=== PATIENT | female | born 1960 | race Caucasian/White ===

== ENCOUNTER 2023-03-19 12:53 | Emergency (ER) | payer OTHER, SELFPAY ==
[2023-03-19] VITALS (13 sets, daily range): BP systolic 169–191; BP diastolic 59–128; PULSE 62–77; RESP 12–23; O2SAT 93–98; BMI 32.2
--- NOTE | 2023-03-19 13:02 | ECG_ITS ---
The [facility] Test Date: 2023-03-19 Pat Name: ZACKERY ZELAYA Department: Room: - Gender: Female [employer] Executive Director: : 1960 Requested By: [id number] Order Number: [id number] Reading MD: MIQUEL RANGEL Measurements Intervals [place] Rate: 63 P: 56 CT: 134 QRS: 54 QRSD: 84 T: 52 QT: 430 QTc: 436 Interpretive Statements 1100 Sinus rhythm 4068 Nonspecific Twave abnormality 9130 borderline ECG No previous ECG available for comparison Electronically Signed On 03-20-2023 7:05:41 EDT by MIQUEL RANGEL
[2023-03-19] MEDS: ACETAMINOPHEN 500 MG TABLET 1000 MG PO (14:06)
[2023-03-19] MEDS: CLONIDINE HCL 0.1 MG TABLET PO (14:06)
--- NOTE | 2023-03-19 14:59 | ED_ITS ---
HPI - General Adult General Chief complaint: Headache Stated complaint: HYPERTENSION Time Seen by Provider: 03/19/23 13:14 Source: patient Mode of arrival: walk-in Limitations: no limitations History of Present Illness HPI narrative: Patient is a 62-year-old female who is presenting to the Emergency Room with chief complaint of headache and high blood pressure. Patient has no strokelike signs or symptoms today. Patient's been having headache daily for the past 2 or 3 weeks. Patient also been having high blood pressure, patient takes verapamil 240 mg a day. Patient went to [facility] Emergency Room 10 days ago because she is having headache, high blood pressure, numbness to her forehead and in the left side of her face. Patient had a CT of the brain, CTA of the head and neck, and a stroke workup. All testing was negative. Patient does not have an appointment with her PCP until next week. Patient is very frustrated because she continues to have high blood pressure and headache daily. Patient didn't have insurance initially and was having a hard time getting into her family doctor. Now patient has medical mutual through her work. Patient denies any type of headache. She has no strokelike signs or symptoms today. Her chest pain or shortness of breath. No other acute complaints. Patient has no bowel pain, nausea or vomiting. No bowel or bladder changes. Patient is very tearful. Patient's taking Tylenol and Naprosyn with little relief. Patient's headache is been the same for the past 2 or 3 weeks, not new today. Patient's headache was not the worse headache of her life, not sudden onset, not thunderclap in nature. Patient told nursing staff Cathy OLMOS that she did not want IV, lab testing, or radiographic testing because she just had a thorough workup 10 days ago [facility]. . All systems are negative except as noted/marked. All systems reviewed and otherwise negative. . Nurses note and vital signs reviewed and patient is not hypoxic. General: The patient appears well and in no apparent distress. Patient is resting comfortably on cart. Patient is not toxic, lethargic, or listless Skin: Warm, dry, no pallor noted. There is no rash noted. No petechiae, purpura. Head: Normocephalic, atraumatic, no midline or paracervical tenderness to palpation. Full range of motion of cervical spinal no difficulty. No tenderness to palpation to bilateral frontomaxillary sinus. Eye: Normal conjunctiva, no drainage, EOMI. PERRL Ears, Nose, Mouth, and Throat: oral mucosa is moist. Nares patent. Mouth without vesicles. Cardiovascular: Regular Rate and Rhythm, no murmur, gallop, rub Respiratory: Patient is in no distress, no accessory muscle use, lungs are clear to auscultation, no wheezing, rales or rhonchi Back: non-tender, no CVA tenderness bilaterally to percussion. No CT LS midline pain GI: soft, no tenderness to palpation, no masses appreciated. No rebound, guarding, or rigidity noted. No flank pain bilateral, No distention Musculoskeletal: Patient has full range of motion of all of the extremities, no motor, sensory, or focal neurological deficits Neurological: A&O x3, normal speech, NIH 0 Psychiatric: Cooperative Related Data Previous Rx's Medication Instructions Recorded hydrochlorothiazide 25 mg tablet 25 mg PO DAILY #14 tabs 03/19/23 Allergies Allergy/AdvReac Type Severity Reaction Status Date / Time No Known Drug Allergies Allergy Verified 03/19/23 13:02 [facility] Social History Smoking status: Never smoker Exam Constitutional Vital Signs, click to edit/add: Last Vital Signs Pulse 68 03/19/23 14:01 Resp 17 03/19/23 14:01 BP 169/59 H 03/19/23 14:06 Pulse Ox 94 L 03/19/23 14:01 O2 Del Method Room Air 03/19/23 12:58 Course Vital Signs Vital signs: Vital Signs Pulse Rate 65 03/19/23 12:58 Respiratory Rate 18 03/19/23 12:58 Blood Pressure 183/128 H 03/19/23 12:58 Pulse Oximetry 98 03/19/23 12:58 Oxygen Delivery Method Room Air 03/19/23 12:58 Pulse Rate 68 03/19/23 14:01 Respiratory Rate 17 03/19/23 14:01 Blood Pressure 169/59 H 03/19/23 14:06 Pulse Oximetry 94 L 03/19/23 14:01 Oxygen Delivery Method Room Air 03/19/23 12:58 Medical Decision Making MDM Narrative Medical decision making narrative: patient did not want any testing in the Emergency Room, she does had thorough testing at [facility] 10 days ago. We called [facility] twice trying to get patient's paperwork from the Emergency Room, and they told us the patient at the call medical records to get a copy of her chart. This is not typically a normal process, but in the large picture patient's urine visit today, I did not call again for a 3rd time. However, I did speak to Dr. Daly. Patient will start taking Hydrocort Dyazide 25 mg a day as recommended by Dr. Daly. He'll see the patient next week. Patient will start creating a blood pressure log. patient understands this, patient was extremely happy my phone call in helping her today, actually tearful and thankfulness because she's been suffering daily and once the headache and blood pressure to be fixed. No questions at discharge ECG Data Attestation: I personally reviewed and interpreted this ECG as follows: Interpretation: EKG interpretation. Normal sinus rhythm at 63 beats a minute. Normal axis deviation. No acute ST elevation, no acute ectopy. QTC of 436. Discharge Plan Discharge Chief Complaint: Headache Clinical Impression: Headache, Hypertension Patient Disposition: Home, Self-Care Condition: Good Prescriptions / Home Meds: New hydrochlorothiazide 25 mg tablet 25 mg PO DAILY Qty: 14 0RF Instructions: Hypertension (ED), General Headache (ED) Additional Instructions: Continue taking verapamil daily. Start taking the new prescription HCTZ 25mg daily as well. Your is aware of your Emergency Room visit today, and he will see her next week. Take your blood pressure twice a day, start creating a blood pressure log and record the blood pressure and time and present that to next week to help with blood pressure control. Stand Alone Forms: Portal Instructions Referrals: Physician,Non-Staff, MD [Primary Care Provider] - 1 week Discharge Date/Time: 03/19/23 14:17
== END 2023-03-19 14:17 | disposition home or self-care (01) ==
PROVIDERS: Emergency Provider Emergency Medicine
DX: R51.9 Headache, unspecified (principal); I10 Essential (primary) hypertension
CPT/HCPCS: 93005; 99283

== ENCOUNTER 2023-10-25 08:35 | Emergency (ER) | payer BC, SELFPAY ==
[2023-10-25] VITALS (12 sets, daily range): BP systolic 142–144; BP diastolic 68–73; PULSE 70; RESP 16; TEMP 37; O2SAT 95–98
[2023-10-25 09:15] LABS: Basophils Percent Auto 0.5 % (0.2-2.0); Eosinophils Absolute Auto 0.2 10^3/uL (0.0-0.7); Eosinophils Percent Auto 3.5 % (0.9-7.0); Hematocrit 35.8 % (36.0-48.0); Hemoglobin 12.2 g/dL (12.0-16.0); Immature Granulocytes Abs Auto 0.01 10^3/uL (0.00-0.03); Immature Granulocytes Pct Auto 0.2 % (0.0-0.5); Lymphocytes Absolute Auto 1.3 10^3/uL (1.2-3.8); Lymphocytes Percent Auto 30.2 % (20.5-60.0); Mean Corpuscular HGB Conc 34.1 g/dL (29.9-35.2); Mean Corpuscular Hemoglobin 31.4 pg (26.7-34.0); Mean Corpuscular Volume 92.3 fL (81.0-99.0); Mean Platelet Volume 10.2 fL (9.5-13.5); Monocytes Absolute Auto 0.3 10^3/uL (0.3-0.8); Neutrophils Absolute Auto 2.5 10^3/uL (1.4-6.5); Neutrophils Percent Auto 58.6 % (43.0-75.0); Platelet Count 138 10^3/uL (150-450); Red Blood Count 3.88 10^6/uL (4.20-5.40); Red Cell Distribution Width 11.9 % (11.0-15.0); White Blood Count 4.3 10^3/uL (4.0-11.0)
[2023-10-25] MEDS: MORPHINE SULFATE 4 MG/ML VIAL IV (09:32)
[2023-10-25] MEDS: ONDANSETRON PF 4 MG/2 ML VIAL IV (09:32)
[2023-10-25] MEDS: 0.9 % SODIUM CHLORIDE 1,000 ML 1000 ML IV (09:33)
[2023-10-25 09:35] LABS: Lactate/Lactic Acid 1.2 mmol/L (0.4-2.0)
--- NOTE | 2023-10-25 09:42 | CT_ITS ---
The [address] [address] Patient Name: ZACKERY ZELAYA MRN: [id number] date: 1960 Sex: F Assigned Patient Location: ER Current Patient Location: Accession/Order Number: [id number] Exam Date: 10/25/2023 10:39 Report Date: 10/25/2023 11:08 At the request of: GABRIELA SAVAGE Procedure: CT abdomen pelvis w con EXAM: CT abdomen pelvis w con HISTORY: Left lower quadrant pain radiating into the lower back for several weeks or minimally. For the past week, pain has worsened and has been constant. COMPARISON: None. TECHNIQUE: IV contrast only was administered. Sagittal and coronal reformatted images were. Dose reduction techniques were achieved by using automated exposure control and/or adjustment of mA and/or kV according to patient size and/or use of iterative reconstruction technique. FINDINGS: The lung bases are grossly clear. Breathing motion artifact limits evaluation of lung bases. The visualized heart and great vessels are normal. The liver, spleen, adrenal glands, and pancreas are normal. Surgical changes of cholecystectomy. The kidneys enhance symmetrically and show no calcifications or hydronephrosis. No stones are seen in the ureters. The aorta has a normal course and caliber. There is scattered calcified plaque in the aorta and branch vessels. The large and small bowel are normal caliber. Stool is seen throughout the colon. A normal appendix is seen in the right lower quadrant. Pelvic organs are atrophied but are grossly normal. Urinary bladder is almost completely empty but is grossly normal. There is question of mild inflammatory stranding around the urinary bladder. There is no free air or free fluid. No suspicious or destructive bone lesions are seen. CT/CT abdomen pelvis w con IMPRESSION: At most, there is a possibility of inflammation around the urinary bladder suggesting a cystitis. There is otherwise no evidence of an acute infectious or inflammatory process to account for the symptoms. There is an element of constipation. Electronically authenticated by: COOPER MENG Date: 10/25/2023 11:08
--- NOTE | 2023-10-25 09:43 | ED.GENADUL1 ---
HPI - General Adult General Chief complaint: Abdominal Pain Stated complaint: ABDOMINAL PAIN Time Seen by Provider: 10/25/23 09:01 Source: patient Mode of arrival: walk-in History of Present Illness HPI narrative: Patient is a 63-year-old female who is presenting to the ER with chief complaint of left lower quadrant pain this been going on for the past week. Patient is also having urinary frequency and urgency, mild dysuria. No other vaginal bleeding or odors or discharge. Patient does have her ovaries, does not have a uterus. Patient has no history of kidney stone, no history of diverticulitis. No fever, chills. No chest pain or shortness of breath. No flank pain, no back pain, no other acute complaints. All systems are negative except as noted/marked. All systems reviewed and otherwise negative. Nurses note and vital signs reviewed and patient is not hypoxic. General: The patient appears well and in no apparent distress. Patient is resting comfortably on cart. Patient is not toxic, lethargic, or listless Skin: Warm, dry, no pallor noted. There is no rash noted. No petechiae, purpura. Head: Normocephalic, atraumatic Eye: Normal conjunctiva, no drainage, EOMI. PERRL Ears, Nose, Mouth, and Throat: oral mucosa is moist. Nares patent. Mouth without vesicles. Cardiovascular: Regular Rate and Rhythm, no murmur, gallop, rub Respiratory: Patient is in no distress, no accessory muscle use, lungs are clear to auscultation, no wheezing, rales or rhonchi Back: non-tender, no CVA tenderness bilaterally to percussion. No CT LS midline pain; patient has mild lower paralumbar tenderness to palpation, no rash, no flank pain bilateral. GI: Moderate left lower quadrant tenderness to palpation, no flank pain bilateral, mild left upper quadrant tenderness palpation ;no tenderness to palpation, no masses appreciated. No rebound, guarding, or rigidity noted. No distention. No peritoneal signs, no flank pain bilateral. Mild suprapubic tenderness to palpation. : Joyce OLMOS at bedside during the entire exam, patient has a very small pea-sized hemorrhoid to the 6 o'clock position. No perirectal or perianal abscess, no pilonidal cyst, no other signs of acute infection. Musculoskeletal: Patient has full range of motion of all of the extremities, no motor, sensory, or focal neurological deficits. Neurological: A&O x4, normal speech. Psychiatric: Cooperative Related Data Home Medications Medication Instructions Recorded Confirmed insulin NPH isoph U-100 human 100 20 unit subcut QAM 10/25/23 10/25/23 unit/mL (3 mL) subcutaneous pen (Novolin N FlexPen) rosuvastatin 20 mg tablet 20 mg PO DAILY 10/25/23 10/25/23 semaglutide 7 mg tablet (Rybelsus) 7 mg PO DAILY 10/25/23 10/25/23 verapamil 240 mg 24 hr 240 mg PO DAILY 10/25/23 10/25/23 capsule,extended release Previous Rx's Medication Instructions Recorded dicyclomine 20 mg tablet 20 mg PO TID PRN abdominal pain #7 10/25/23 tabs ondansetron 4 mg disintegrating 4 mg PO Q4H PRN nausea and 10/25/23 tablet vomiting 3 days #6 tabs Allergies Allergy/AdvReac Type Severity Reaction Status Date / Time No Known Drug Allergies Allergy Verified 03/19/23 13:02 [facility] Medical History (Updated 10/25/23 @ 12:13 by Tarun Baker MD) Endometriosis ?N80.9 - Endometriosis, unspecified (ICD-10) Endometrial adenocarcinoma ?C54.1 - Malignant neoplasm of endometrium (ICD-10) Surgical History (Updated 10/25/23 @ 09:05 by Cassandra Pearson RN) History of partial hysterectomy ?Z90.711 - Acquired absence of uterus with remaining cervical stump (ICD-10) Hx of cholecystectomy ?Z90.49 - Acquired absence of other specified parts of digestive tract (ICD-10) Social History Smoking status: Never smoker Exam Constitutional Vital Signs, click to edit/add: Last Vital Signs Temp 98.6 F 10/25/23 08:40 Pulse 70 10/25/23 08:40 Resp 16 10/25/23 08:40 BP 144/73 H 10/25/23 11:00 Pulse Ox 95 10/25/23 11:00 O2 Del Method Room Air 10/25/23 08:40 Course Vital Signs Vital signs: Vital Signs Temperature 98.6 F 10/25/23 08:40 Pulse Rate 70 10/25/23 08:40 Respiratory Rate 16 10/25/23 08:40 Blood Pressure 142/70 H 10/25/23 08:40 Pulse Oximetry 95 10/25/23 08:40 Oxygen Delivery Method Room Air 10/25/23 08:40 Temperature 98.6 F 10/25/23 08:40 Pulse Rate 70 10/25/23 08:40 Respiratory Rate 16 10/25/23 08:40 Blood Pressure 144/73 H 10/25/23 11:00 Pulse Oximetry 95 10/25/23 11:00 Oxygen Delivery Method Room Air 10/25/23 08:40 Medical Decision Making MDM Narrative Medical decision making narrative: CT of the abdomen pelvis shows no acute findings. Patient lab work shows no acute findings, urine also shows no obvious signs of urinary tract infection. Patient was sent home with a prescription for Zofran and Bentyl to use prophylactically. Patient will increase fluids, patient does feel better at discharge. Reexamination abdomen at discharge shows soft, nontender, mild left lower quadrant tenderness palpation, no peritoneal signs, no guarding, rebound, rigidity. Education done at discharge and on paper, no questions Lab Data Labs: Lab Results 10/25/23 10/25/23 Range/Units 09:00 10:32 WBC 4.3 (4.0-11.0) 10^3/uL RBC 3.88 L (4.20-5.40) 10^6/uL Hgb 12.2 (12.0-16.0) g/dL Hct 35.8 L (36.0-48.0) % MCV 92.3 (81.0-99.0) fL MCH 31.4 (26.7-34.0) pg MCHC 34.1 (29.9-35.2) g/dL RDW 11.9 (11.0-15.0) % Plt Count 138 L (150-450) 10^3/uL MPV 10.2 (9.5-13.5) fL Neut % (Auto) 58.6 (43.0-75.0) % Lymph % (Auto) 30.2 (20.5-60.0) % [place] % (Auto) 7.0 (1.7-12.0) % Eos % (Auto) 3.5 (0.9-7.0) % Baso % (Auto) 0.5 (0.2-2.0) % Neut # (Auto) 2.5 (1.4-6.5) 10^3/uL Lymph # (Auto) 1.3 (1.2-3.8) 10^3/uL [place] # (Auto) 0.3 (0.3-0.8) 10^3/uL Eos # (Auto) 0.2 (0.0-0.7) 10^3/uL Baso # (Auto) 0.0 (0.0-0.1) 10^3/uL Abs Immat Gran (auto) 0.01 (0.00-0.03) 10^3/uL Imm/Tot Granulo (auto) 0.2 (0.0-0.5) % Sodium 143 (136-145) mmol/L Potassium 4.0 (3.5-5.1) mmol/L Chloride 105 (98-107) mmol/L Carbon Dioxide 27.7 (21.0-32.0) mmol/L Anion Gap 14.3 BUN 12.0 (7.0-18.0) mg/dL Creatinine 0.71 (0.55-1.02) mg/dL Est GFR ( Amer) >60 (>=60) Est GFR (Non-Af Amer) >60 (>=60) BUN/Creatinine Ratio 16.9 Glucose 156 H (74-106) mg/dL Lactate 1.2 (0.4-2.0) mmol/L Calcium 8.4 L (8.5-10.1) mg/dL Total Bilirubin 0.2 (0.2-1.0) mg/dL AST 28 (15-37) U/L ALT 48 (14-59) U/L Alkaline Phosphatase 62 (46-116) U/L Troponin I High Sens <4.0 L (4.0-51.3) pg/mL Total Protein 7.0 (6.4-8.2) g/dL Albumin 3.5 (3.4-5.0) g/dL Globulin 3.5 g/dL Albumin/Globulin Ratio 1.0 Lipase 41.0 (16.0-77.0) U/L Urine Color Yellow (YELLOW) Urine Clarity Clear (CLEAR) Urine pH 5.5 (5.0-9.0) Ur Specific [place] 1.025 (1.005-1.025) Urine Protein Negative (NEG/TRACE) mg/dL Urine Glucose (UA) Negative (NEGATIVE) mg/dL Urine Ketones Trace A (NEGATIVE) mg/dL Urine Occult Blood Negative (NEGATIVE) Urine Nitrite Negative (NEGATIVE) Urine Bilirubin Negative (NEGATIVE) Urine Urobilinogen 0.2 (0.2-1.0) EU/dL Ur Leukocyte Esterase Negative (NEGATIVE) Urine RBC 0-2 (0-2) #/HPF Urine WBC 0-2 A (NONE SEEN) #/HPF Ur Squamous Epith Cells Moderate A (NONE/RARE) #/LPF Urine Crystals None seen (None Seen) #/HPF Urine Bacteria Small A (NONE SEEN) #/HPF Urine Casts None seen (NONE SEEN) #/LPF Urine Mucus None seen (NONE SEEN) Discharge Plan Discharge Chief Complaint: Abdominal Pain Clinical Impression: Left lower quadrant abdominal pain, Urinary frequency, Nausea Patient Disposition: Home, Self-Care Time of Disposition Decision: 12:12 Condition: Fair Prescriptions / Home Meds: New dicyclomine 20 mg tablet 20 mg PO TID PRN (Reason: abdominal pain) Qty: 7 0RF ondansetron 4 mg tablet,disintegrating 4 mg PO Q4H PRN (Reason: nausea and vomiting) 3 Days Qty: 6 0RF No Action verapamil 240 mg capsule,ext rel. pellets 24 hr 240 mg PO DAILY rosuvastatin 20 mg tablet 20 mg PO DAILY Rybelsus 7 mg tablet 7 mg PO DAILY Novolin N FlexPen 100 unit/mL (3 mL) insulin pen 20 unit subcut QAM Instructions: Acute Nausea and Vomiting (ED), Abdominal Pain (ED), Urinary Urgency and Frequency (DC) Additional Instructions: Use Zofran if needed for nausea and vomiting. Use Bentyl as needed for abdominal cramping Increase fluids at home, work note given. Referrals: Physician,Non-Staff, MD [Primary Care Provider] - 1 week Stand Alone Forms: Work/School Release, Portal Instructions
[2023-10-25 10:02] LABS: Alanine Aminotransferase 48 U/L (14-59); Albumin Level 3.5 g/dL (3.4-5.0); Alkaline Phosphatase 62 U/L (46-116); Anion Gap 14.3; Aspartate Amino Transferase 28 U/L (15-37); BUN Creatinine Ratio 16.9; Bilirubin Total 0.2 mg/dL (0.2-1.0); Calcium 8.4 mg/dL (8.5-10.1); Carbon Dioxide 27.7 mmol/L (21.0-32.0); Chloride 105 mmol/L (98-107); Estimated GFR (African America >60 (>=60); Estimated GFR (Non-African Ame >60 (>=60); Globulin 3.5 g/dL; Glucose 156 mg/dL (74-106); Sodium 143 mmol/L (136-145); Troponin I High Sensitivity <4.0 pg/mL (4.0-51.3)
[2023-10-25 10:52] LABS: Bilirubin Urine NEGATIVE (NEGATIVE); Blood Urine NEGATIVE (NEGATIVE); Clarity Urine CLEAR (CLEAR); Color Urine YELLOW (YELLOW); Glucose Urine UA NEGATIVE (NEGATIVE); Ketones Urine TRACE mg/dL (NEGATIVE); Leukocyte Esterase Urine NEGATIVE (NEGATIVE); Nitrite Urine NEGATIVE (NEGATIVE); Protein Urine NEGATIVE (NEG/TRACE); Specific Gravity Urine 1.025 (1.005-1.025); Urobilinogen Urine 0.2 EU/dL (0.2-1.0); pH Urine 5.5 (5.0-9.0)
[2023-10-25 11:04] LABS: Bacteria Urine SMALL #/HPF (NONE SEEN); Cast Seen? NONE SEEN #/LPF (NONE SEEN); Crystals Seen? None Seen #/HPF (None Seen); Mucus Urine NONE SEEN (NONE SEEN); RBC Urine 0-2 #/HPF (0-2); Squamous Epithelial Cell Urine MODERATE #/LPF (NONE/RARE); WBC Urine 0-2 #/HPF (NONE SEEN)
[2023-10-25] MEDS: LACTATED RINGER'S SOLUTION 1,000 ML 50 ML IV (11:13)
== END 2023-10-25 12:23 | disposition home or self-care (01) ==
PROVIDERS: Emergency Provider Emergency Medicine
DX: R10.32 Left lower quadrant pain (principal); R35.0 Frequency of micturition; R11.0 Nausea; Z79.899 Other long term (current) drug therapy; Z79.4 Long term (current) use of insulin; Z90.711 Acquired absence of uterus with remaining cervical stump; Z90.49 Acquired absence of other specified parts of digestive tract; Z85.89 Personal history of malignant neoplasm of other organs and systems
CPT/HCPCS: 36415; 74177; 80053; 81001; 83605; 83690; 84484; 85025; 96374; 96375; 99284; Q9967

== ENCOUNTER 2024-05-03 10:37 | Emergency (ER) | payer OTHER, SELFPAY ==
[2024-05-03 10:42] VITALS: BP 170/80; PULSE 61; TEMP 37.2; O2SAT 96; BMI 30.9
--- NOTE | 2024-05-03 11:03 | ECG_ITS ---
The 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
--- OUTSIDE RECORDS SUMMARY | 2024-05-03 11:05 | XMS_ITS | CCD ---
Author Organization [facility] Care Team Providers Care Time Study Clerk Name Role Phone KASEY MORA Admitting Unavailable KASEY MORA Attending Unavailable LESLI WOLF Primary Care Unavailable KASEY MORA Consulting Unavailable LUCIANO LESLI Admitting Unavailable LESLI WOLF Attending Unavailable LESLI WOLF Primary Care Unavailable LESLI WOLF Consulting Unavailable LUCIANO, LESLI Admitting Unavailable LESLI WOLF Attending Unavailable LUCIANO, LESLI Primary Care Unavailable LUCIANO LESLI Consulting Unavailable LUCIAON LESLI Admitting Unavailable LESLI WOLF Attending Unavailable LUCIANO, LESLI Primary Care Unavailable DR MELIA DEVINE V Consulting Unavailable LESLI WOLF Consulting Unavailable Daniele Avina Primary Care Physician DO Daniele Avina Primary Care Provider UnavailDO Luis Domingo Emergency Provider Mustapha Lynn Unavailable Merari Piedra Primary Care Physician [phone] Merari Piedra Attending Unavailable Merari Piedra Admitting Unavailable Merari Piedra Referring Unavailable Merari Piedra Attending Unavailable Merari Piedra Admitting Unavailable Olu Young Attending Unavailable Tarun JARAMILLO Attending Unavailable Merari Piedra Attending Unavailable Merari Piedra Admitting Unavailable Merari Piedra Referring Unavailable Allergies Allergy Classification Reported Allergen(s) Allergy Type Date of Onset Reaction(s) Facility (2 sources) amLODIPine Drug Allergy Unknown [employer] Other (1 source) No Known Medication Allergies; Translations: [No Known Medication Allergies] Propensity to adverse reactions (disorder) [facility] Repository Medications Current Medications Medication Drug Class(es) Dates Sig (Normalized) Sig (Original) acetaminophen 325 mg / oxyCODONE hydrochloride 5 mg oral tablet (1 source) Opioid Agonist Start: 01-05-2022 End: 01-08-2022 Percocet 325 mg-5 mg Tab 1 tab(s), Oral, q6hr as needed for pain for 3 day(s), 15 tab(s), Refill(s) 0, [facility]/pharmacy #[id number], 147.3, cm, 01/05/22 9:03:00 EDT, Height/Length Dosing, 68, kg, 01/05/22 9:03:00 EDT, Weight Dosing Start Date: 01/05/22 Stop Date: 01/08/22 Status: Ordered chlorthalidone 25 mg oral tablet (5 sources) Thiazide-like Diuretic Start: 06-10-2019 take 25 mg by mouth once daily chlorthalidone 25 mg, Oral, Daily, Refills(s) 0, diuretic/water pill Start Date: 06/10/19 Status: Ordered 0.5 ml dulaglutide 1.5 mg/ml auto-injector (5 sources) GLP-1 Receptor Agonist Start: 01-25-2020 Trulicity Pen 0.75 mg/0.5 mL subcutaneous solution SubCutaneous, qWeek, Refills(s) 0 Start Date: 01/25/20 Status: Ordered empagliflozin 25 mg oral tablet (5 sources) Sodium-Glucose Cotransporter 2 Inhibitor Start: 01-25-2020 take 1 tablet by mouth once daily in the morning Jardiance 25 mg oral tablet 25 mg = 1 tab(s), Oral, qAM, Refills(s) 0 Start Date: 01/25/20 Status: Ordered insulin detemir 100 unt/ml injectable solution (4 sources) Insulin Analog Start: 01-25-2020 inject 20 [IU] by subcutaneous injection once daily Levemir 100 units/mL Injection-Insulin 20 unit(s), SubCutaneous, Daily, Refills(s) 0 Start Date: 01/25/20 Status: Ordered insulin isophane, human 100 unt/ml injectable suspension (1 source) NovoLIN N 100 UNIT/ML as directed Subcutaneous Active Levemir 100 units/mL Injection-Insulin (1 source) Start: 01-25-2020 inject 20 [IU] by subcutaneous injection once daily Levemir 100 units/mL Injection-Insulin 20 unit(s), SubCutaneous, Daily, Refills(s) 0 Start Date: 01/25/20 Status: Ordered MiraLax 3350 Oral Pwdr for Recon 249 gram (4 sources) Start: 01-25-2020 MiraLax 3350 Oral Pwdr for Recon 249 gram 17 gram, Oral, Daily, # 255 gram, Refills(s) 0, Pharmacy: [facility]/pharmacy #[id number], 148, cm, 01/25/20 6:07:00 EDT, Height/Length Measured, 67, kg, 01/25/20 6:07:00 EDT, Weight Measured Start Date: 01/25/20 Status: Ordered pantoprazole 40 mg extended release oral tablet (6 sources) Proton Pump Inhibitor Start: 06-10-2019 take 40 mg by mouth once daily pantoprazole 40 mg, Oral, Daily, Refills(s) 0, Control of stomach acid Start Date: 06/10/19 Status: Ordered Pantoprazole Sod ium Active polyethylene glycol 3350 44194 mg powder for oral solution (1 source) Osmotic Laxative Start: 01-25-2020 MiraLax 3350 Oral Pwdr for Recon 249 gram 17 gram, Oral, Daily, # 255 gram, Refills(s) 0, Pharmacy: [facility]/pharmacy #[id number], 148, cm, 01/25/20 6:07:00 EDT, Height/Length Measured, 67, kg, 01/25/20 6:07:00 EDT, Weight Measured Start Date: 01/25/20 Status: Ordered Potassium (1 source) Potassium Active rosuvastatin (1 source) HMG-CoA Reductase Inhibitor Rosuvastatin Calcium Active verapamil hydrochloride 240 mg extended release oral tablet (5 sources) Calcium Channel Kali Start: 05-20-2019 take 1 tablet by mouth once daily in the evening verapamil 240 mg ER Tab 240 mg = 1 tab(s), Oral, qPM, High blood pressure Start Date: 05/20/19 Status: Ordered Vitamin B1 (1 source) Vitamin B1 Activ e Completed/Discontinued Medications Medication Drug Class(es) Dates Sig (Normalized) Sig (Original) meclizine hydrochloride 25 mg oral tablet (3 sources) Antiemetic Start: 03-11-2023 take 1 tablet by mouth three times daily Antivert 25 mg Tab 25 mg = 1 tab(s), Oral, TID, Take one by mouth three times a day, # 21 tab(s), Refills(s) 0, Pharmacy: [facility]/pharmacy #[id number], 147, cm, 03/11/23 9:45:00 EDT, Height/Length Dosing, 71, kg, 03/11/23 9:45:00 EDT, Weight Dosing Start Date: 03/11/23 Status: Ordered Problems Active Problems Problem Classification Problem Date Documented Date Episodic/Chronic Diabetes mellitus with complications (4 sources) Type 2 diabetes mellitus with other diabetic neurological complication; Translations: [TYP 2 DM W/DIABETIC NEURO COMP] Onset: 12-27-2020 Chronic Diabetes mellitus without complication (10 sources) Diabetes mellitus 05-20-2019 Chronic Disorders of lipid metabolism (6 sources) Mixed hyperlipidemia; Translations: [Hyperlipidemia] Onset: 01-04-2021 05-20-2019 Chronic Esophageal disorders (5 sources) Gastroesophageal reflux disease 05-20-2019 Chronic Essential hypertension (10 sources) Hypertensive disorder 05-20-2019 Chronic Nutritional deficiencies (1 source) Vitamin D deficiency, unspecified; Translations: [VITAMIN D DEFICIENCY UNSPECIFIED] Onset: 01-04-2021 Chronic Other circulatory disease (1 source) Elevated blood pressure; Translations: [Elevated blood pressure] Episodic Other upper respiratory infections (1 source) Maxillary sinusitis; Translations: [Left maxillary sinusitis] Chronic Residual codes; unclassified (1 source) Current drinker; Translations: [Other problems related to lifestyle] 02-04-2022 Episodic Suicide and intentional self-inflicted injury (1 source) Suicidal thoughts; Translations: [Suicidal ideations] 02-04-2022 Episodic Unclassified (3 sources) CONTACT W/AND (SUSP) EXPOS COVID-19; Translations: [CONTACT W/AND (SUSP) EXPOS COVID-19] Onset: 07-29-2021 Viral infection (1 source) COVID-19; Translations: [COVID-19] Onset: 09-08-2021 Past or Other Problems Problem Classification Problem Date Documented Da te Episodic/Chronic Fracture of upper limb (2 sources) Closed fracture of carpal bone; Translations: [Fracture of unspecified carpal bone, unspecified wrist, initial encounter for closed fracture] Onset: 01-05-2022 Resolved: 01-15-2022 Episodic Other aftercare (1 source) intermediate teacher (current) use of insulin; 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] Onset: 01-04-2021 Episodic Other connective tissue disease (4 sources) Pain in left lower leg; Translations: [PAIN IN LEFT LOWER LEG] Onset: 11-01-2020 Episodic Unclassified (1 source) CONTACT W/AND (SUSP) EXPOS COVID-19; Translations: [CONTACT W/AND (SUSP) EXPOS COVID-19] Onset: 09-06-2021 Results Test Name Value Interpretation Reference Range Facility Consent for Treatmenton 10-24 Consent for Treatment [id number] .00TIFF Normal [facility] US Pelvis Non-OB Limitedon 0 11-05-2023 US Pelvis Non-OB Limited Exam Date/Time: 11/05/2023 12:00 EDT Reason for Exam: R10.32 Report [facility] [phone] IMPRESSION: HYSTERECTOMY. CLINICAL HISTORY: R10.32. Findings: Uterus surgically absent. The right ovary measurements and an estimated volume are: Right Ovary Length: 1.6 cm Right Ovary Width: 2.1 cm Right Ovary Height: 1.6 cm Right Ovary Volume: 2.7 cm3 The left ovary measurements and an estimated volume are: Left Ovary Length: 1.8 cm Left Ovary Width: 2.4 cm Left Ovary Height: 1.5 cm Left Ovary Volume: 3.5 cm3 No adnexal masses. No free fluid. Ordering Provider: Merari Piedra FINAL REPORT Dictated: 11/05/2023 7:20 pm John Sandra MD Signed (Electronic Signature): 11/05/2023 7:20 pm Signed by: John Sandra MD Transcribed by: SUSAN Technologist: ANGELICA Technical Comments Transabdominal Ultrasound Performed Normal [facility] Consent for Treatmenton Consent for Treatment [id number] .00TIFF Normal [facility] Physician Orderon 11-01-2023 Physician Order [id number] .00TIFF Normal [facility] US Abdomen Completeon 2023 US Abdomen Complete Exam Date/Time: 11/01/2023 10:25 EST Reason for Exam: R10.32 Report IMPRESSION: NEGATIVE STUDY CLINICAL HISTORY: R10.32 TECHNIQUE: Grayscale images and Doppler images of the right upper quadrant were obtained in multiple planes. COMPARISON: NONE. FINDINGS: The liver is normal in size and sonographic appearance. There are no focal solid or cystic lesions. Length is 2.5 cm. The common bile duct measures 2 mm. There is no free fluid. Status post cholecystectomy. The kidneys are normal in size and sonographic appearance. There is no hydronephrosis, there are no solid or cystic lesions. The right kidney measures 10 cm in greatest diameter. The right renal cortex measures 1.2 cm. The left kidney measures 9.7 cm in greatest diameter, the left renal cortex measures 1.3 cm. The spleen is normal in size and sonographic appearance without focal lesions. Maximum diameter is a 10.6 cm. Ordering Provider: Merari Piedra FINAL REPORT Dictated: 11/01/2023 1:03 pm Joe Carmona MD, V. Signed (Electronic Signature): 11/01/2023 1:03 pm Signed by: Joe Carmona MD, V. Transcribed by: SUSAN Technologist: TAMI Nagel [facility] XR Abdomen 1 Viewon 10-31-19 24 XR Abdomen 1 View Exam Date/Time: 10/30/2023 12:04 EST Reason for Exam: R10.32 Report IMPRESSION: NO URINARY TRACT CALCULI IDENTIFIED BY RADIOGRAPHY. NONOBSTRUCTIVE BOWEL GAS PATTERN. EXAMINATION: XR Abdomen 1 View HISTORY: Left lower quadrant pain TECHNIQUE: Frontal view of the abdomen and pelvis COMPARISON: CT abdomen pelvis 01/25/2020 FINDINGS: No calcifications identified over the bilateral renal shadows or expected course of the ureters. Nonobstructive bowel gas pattern. No evidence of free air. No acute osseous abnormality. Ordering Provider: Merari Piedra FINAL REPORT Dictated: 10/31/2023 12:23 pm Epifanio Schmidt DO Signed (Electronic Signature): 10/31/2023 12:23 pm Signed by: Epifanio Schmidt DO Transcribed by: SUSAN Technologist: ENRIQUETA Technical Comments Radiation Dose: Ka,r in mGy = na DAP = na Normal [facility] Consent for Treatmenton Consent for Treatment [id number] .00TIFF Normal [facility] Physician Orderon 10-30-2023 Physician Order [id number] Normal [facility] Physician Order [id number] .00TIFF Normal [facility] Auto Diffon 03-11-2023 Basophils/100 WBC (Bld) 0.3 % Normal 0.0-2.0 [facility] Comment on above: Order Comment: Order Added by Discern Expert. Performed By: #### 1 [id number], 9755289, 86456929, 2303005, 5688190, [id number] ####[facility] [address] [place] [address] Basophils/Leukocytes Auto (Bld) [Pure # fraction] 0.0 E9/L Normal 0.0-0.2 [facility] Comment on above: Order Comment: Order Added by Discern Expert. Performed By: #### 1 [id number], 6690736, 90883849, 9341093, 2257911, 34877429 ####[facility] [address] [place] [address] Eosinophils/100 WBC (Bld) 2.8 % Normal 0.0-8.0 [facility] Comment on above: Order Comment: Order Added by Discern Expert. Performed By: #### 1 8937766, 8614430, 93244732, 7191472, 0633537, 98614175 ####[facility] [address] [place] [address] Eosinophils/Leukocytes Auto (Bld) [Pure # fraction] 0.1 E9/L Normal 0.0-0.5 [facility] Comment on above: Order Comment: Order Added by Discern Expert. Performed By: #### 1 9853822, 9193461, 22668397, 3284135, 2342057, 81915863 ####[address] [place] [address] Lymphocytes/100 WBC (Bld) 29.2 % Normal 14.0-50.0 [facility] Comment on above: Order Comment: Order Added by Discern Expert. Performed By: #### 1 4499344, 0958936, 21793242, 8930231, 3606508, 19654497 ####[address] [place] [address] Lymphocytes/Leukocytes Auto (Bld) [Pure # fraction] 1.3 E9/L Normal 1.0-4.0 [facility] Comment on above: Order Comment: Order Added by Discern Expert. Performed By: #### 1 7247529, 8703807, 95925268, 7349371, 0681022, 77675550 ####[address] [address] Monocytes/100 WBC (Bld) 8.2 % Normal 4.0-14.0 [facility] Comment on above: Order Comment: Order Added by Larry Expert. Performed By: #### 1 7939715, 2042083, 42129948, 9552032, 4018319, 09210897 ####[address] [place] [address] Monocytes/Leukocytes Auto (Bld) [Pure # fraction] 0.4 E9/L Normal 0.2-1.0 [facility] Comment on above: Order Comment: Order Added by Discern Expert. Performed By: #### 1 1084377, 7349306, 73074087, 6463479, 6660713, 29593797 ####[address] [place] [address] Neutrophils/100 WBC (Bld) 59.5 % Normal 36.0-75.0 [facility] Comment on above: Order Comment: Order Added by Discern Expert. Performed By: #### 1 4233161, 0017654, 19927577, 4867047, 8539131, 99597640 ####[facility] [address] [place] [address] Neutrophils/Leukocytes Auto (Bld) [Pure # fraction] 2.7 E9/L Normal 2.0-7.5 [facility] Comment on above: Order Comment: Order Added by Discern Expert. Performed By: #### 1 0040966, 2342750, 09044051, 8357716, 8977703, 76513860 ####[facility] [address] [place] [address] BMPon 03-11-2023 Creatinine [Mass/Vol] 0.7 mg/dL Normal 0.5-1.3 [facility] Comment on above: Performed By: #### 1 1438853, 8368763, 04120337, 4898062, 2471436, 55262231 ####[facility] [address] [place] [address] Urea nitrogen [Mass/Vol] 14 mg/dL Normal 5-21 [facility] Comment on above: Performed By: #### 1 1091430, 3149795, 14034479, 2644354, 2828279, 80279166 ####[facility] [address] [place] [address] Urea nitrogen/Creatinine [Mass ratio] 20 No Units Normal 10-20 [facility] Comment on above: Performed By: #### 1 7595654, 6572929, 72282893, 9043555, 9812627, 86943855 ####[facility] [address] [place] [address] Anion gap [Moles/Vol] 14 mmol/L Normal 6-16 [facility] Comment on above: Performed By: #### 1 9444374, 7845740, 47609680, 1487388, 9394522, 66859156 ####[facility] [address] [place] [address] Calcium [Mass/Vol] 9.0 mg/dL Normal 8.9-11.1 [facility] Comment on above: Performed By: #### 1 5710267, 0910316, 13193963, 4062749, 3927932, 27638556 ####[facility] [address] [place] [address] Chloride [Moles/Vol] 101 mmol/L Normal 101-111 [facility] Comment on above: Performed By: #### 1 3127703, 1906012, 43378776, 8669002, 2693447, 29724172 ####[facility] [address] [place] [address] CO2 [Moles/Vol] 27 mmol/L Normal 21-31 [facility] Comment on above: Performed By: #### 1 3658633, 6923545, 79189266, 8000318, 0514053, 63138670 ####[facility] [address] [place] [address] Glucose [Mass/Vol] 271 mg/dL High 55-199 [facility] Comment on above: Result Comment: If t his glucose result represents a fasting glucose, interpretation should refer to the following reference range: 55-99 mg/dL Performed By: #### 1 7410503, 0396544, 13625229, 2106465, 5595591, 03867215 ####[facility] [address] [place] [address] Potassium [Moles/Vol] 4.3 mmol/L Normal 3.5-5.3 [facility] Comment on above: Performed By: #### 1 2793693, 1379303, 27742176, 0260104, 5661725, 12795412 ####[facility] [address] [place] [address] Sodium [Moles/Vol] 138 mmol/L Normal 135-145 [facility] Comment on above: Performed By: #### 1 1631567, 5733287, 19171899, 1682090, 7423263, 76720717 ####[facility] [address] [place] [address] CBC w/ Auto Diffon 3 Erythrocyte distribution width (RBC) [Ratio] 13.6 % Normal 10.9-14.2 [facility] Comment on above: Performed By: #### 1 4602800, 9599252, 92427113, 2375286, 6765347, 11584747 ####[address] [place] [address] Hematocrit (Bld) [Volume fraction] 39.0 % Normal 34.0-46.0 [facility] Comment on above: Performed By: #### 1 4672283, 7309958, 46858465, 3805016, 8863122, 97176438 ####[address] [place] [address] Hemoglobin (Bld) [Mass/Vol] 13.8 g/dL Normal 12.0-16.0 [facility] Comment on above: Performed By: #### 1 6178801, 7462573, 45121853, 4021325, 5187894, 56763442 ####[address] [address] MCH (RBC) [Entitic mass] 31.9 pg Normal 27.0-34.0 [facility] Comment on above: Performed By: #### 1 0982271, 4190278, 55338263, 7676618, 3230333, 05056612 ####[address] [address] MCHC (RBC) [Mass/Vol] 35.5 g/dL Normal 31.4-36.0 [facility] Comment on above: Performed By: #### 1 5487707, 3030654, 76013017, 3838845, 7559157, 45672508 ####[address] [address] MCV (RBC) [Entitic vol] 89.9 fL Normal 80.0-100.0 [facility] Comment on above: Performed By: #### 1 5769476, 2946749, 34584263, 8342217, 1251261, 00403542 ####[address] [place] [address] Platelet mean volume (Bld) [Entitic vol] 8.4 fL Normal 6.4-10.8 [facility] Comment on above: Performed By: #### 1 1404954, 7687045, 68291299, 5800513, 9132392, 25354469 ####[address] [place] [address] Platelets (Bld) [#/Vol] 141.0 E9/L Low 150.0-500.0 [facility] Comment on above: Performed By: #### 1 9505342, 4967767, 10538161, 7728280, 5637665, 13371331 ####[address] [address] RBC (Bld) [#/Vol] 4.3 E12/L Normal 4.3-5.9 [facility] Comment on above: Performed By: #### 1 6591184, 4111790, 87943355, 8657875, 1889866, 35371072 ####[address] [address] WBC corrected for nucl RBC Auto (Bld) [#/Vol] 4.6 E9/L Normal 4.0-11.0 [facility] Comment on above: Result Comment: Slid e reviewed by ts. Performed By: #### 1 4555242, 8343527, 02118628, 9000389, 0440874, 12743431 ####[address] [address] [address] Head or Brain w/o Contras ton 03-11-2023 CT Head or Brain w/o Contrast Exam Date/Time: 03/11/2023 10:42 EDT Reason for Exam: Neuro deficit, acute, stroke suspected;Other (please specify) Report IMPRESSION: NO ACUTE FINDINGS. CT BRAIN WITHOUT INTRAVENOUS CONTRAST MEDIUM. History: Acute dizziness for several days. No known injury. Technical factors: CT imaging of the brain was obtained and formatted as 5 mm contiguous axial images. 2.5 mm contiguous axial images were obtained through the osseous structures. Sagittal and coronal reconstruction obtained during postprocessing. Comparison: CT brain May 30, 2022. Findings: Extra-axial spaces: Normal. Intracranial hemorrhage: None. Ventricular system: Without anomaly. Basal Cisterns: Normal. Cerebral Parenchyma: Without anomaly. Midline Shift: None. Cerebellum: Normal. Paranasal sinuses and mastoid air cells: Normal. Visualized Orbits: Normal. All CT scans at this facility use dose modulation, iterative reconstruction, and/or weight based dosing when appropriate to reduce radiation dose to as low as reasonably achievable. Report Ordering Provider: Olu Young FINAL REPORT Dictated: 03/11/2023 11:23 am John Sandra MD Signed (Electronic Signature): 03/11/2023 11:23 am Signed by: John Sandra MD Transcribed by: SUSAN Technologist: ENRIQUETA Normal [facility] CTA Headon 03-11-2023 CTA Head Exam Date/Time: 03/11/2023 13:08 EDT Reason for Exam: Cerebral hemorrhage suspected;Other (please specify) Report Review CTA neck for report CTA head Ordering Provider: Olu Young FINAL REPORT Dictated: 03/11/2023 1:39 pm John Sandra MD Signed (Electronic Signature): 03/11/2023 1:39 pm Signed by: John Sandra MD Transcribed by: SUSAN Technologist: ENRIQUETA Technical Comments GFR (mL/min/1/73m2) >60 Contrast: Isovue 370 Contrast amount in ml's: 100 Normal [facility] CTA Neckon 03-11-2023 CTA Neck Exam Date/Time: 03/11/2023 13:08 EDT Reason for Exam: Stroke, follow up ; Stroke, hemorrhagic;Other (please specify) Report IMPRESSION: NEGATIVE CTA NECK. 0% STENOSIS BY NASCET CRITERIA. NEGATIVE CTA HEAD. CTA HEAD AND NECK WITH INTRAVENOUS CONTRAST MEDIUM. CLINICAL HISTORY: Stroke, follow up ; Stroke, hemorrhagic COMPARISON: None TECHNIQUE: CTA neck neck and head were obtained and formatted as contiguous axial images from aortic arch to skull vertex. Thin cut, overlap, 3-D MIP, sagittal, coronal, right and left anterior oblique reconstruction obtained during postprocessing. Intravenous Contrast Medium: Isovue-370, 100 mL CTA NECK WITH INTRAVENOUS CONTRAST MEDIUM. FINDINGS: RIGHT CAROTID: Right common carotid artery: [Arises from right brachiocephalic trunk. Normal in course and caliber]. Right carotid bifurcation: [Patent.] Right internal carotid artery: [Cervical, petrous, lacerum, clinoid, cavernous, and communicating segments patent.] LEFT CAROTID: Left common carotid artery: [Arises from aortic arch. Normal in course and caliber.] Left carotid bifurcation: [Patent.] Left internal carotid artery:[Cervical, petrous, lacerum, clinoid, cavernous, and communicating segments patent.] RIGHT VERTEBRAL: Right vertebral artery arises from right subclavian artery. Pre foraminal, foraminal, extradural, and intradural segments patent. Report LEFT VERTEBRAL: Left vertebral artery arises from left subclavian artery. Pre foraminal, foraminal, extradural, and intradural segments patent. CTA HEAD WITH INTRAVENOUS CONTRAST MEDIUM. FINDINGS: Anterior communicating artery:[Patent]. 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 Ordering Provider: Olu Young FINAL REPORT Dictated: 03/11/2023 1:39 pm John Sandra MD Signed (Electronic Signature): 03/11/2023 1:39 pm Signed by: John Sandra MD Transcribed by: DP Technologist: RRB Technical Comments GFR (mL/min/1/73m2) >60 Contrast: Isovue 370 Contrast amount in ml's: 100 Normal [facility] Capillary Glucose POCon 02-23 Glucose [Mass/Vol] 273 mg/dL High 55-99 [facility] Comment on above: Result Comment: Astrid mcwilliams Meter Performed By: #### 2 [id number] ####[facility] [id number] [place] [address] Consent for Treatmenton 02-23 Consent for Treatment [id number]:127 Normal [facility] Discharge Instructionson Discharge Instructions [id number]:127 Normal [facility] ED Clinical Summaryon 2022 ED Clinical Summary [place] [id number] ED Clinical Summary Person Information Name: IDA ZELAYA/[facility] Age: 62 Years : 1960 Sex: Female Language: Nepalese PCP: Daniele Avina DO Marital Status: Phone: [phone] Visit Id: Visit Reason: Throat pain - Adult; Cough; Dizziness; DIZZY,HEADACHE, LEFT SIDE FACIAL NUMBNESS, EAR/THROAT PAIN Speciality: Acuity: 3 Enc Type: Emergency Med Service: Emergency Arrival: 03/11/2023 09:37:00 Discharge: 03/11/2023 14:16:21 LOS: 000 04:39 Checkin: 03/11/2023 09:37:00 Checkout: 03/11/2023 14:16:21 Dispo Type: Home (Routine DC) EVENTS: Event Name Event Status Request Date/Time Start Date/Time Complete Date/Time Arrive Complete 03/11/2023 09:37:00 03/11/2023 09:37:00 03/11/2023 09:37:00 Document Home Meds Request 03/11/2023 09:37:00 Triage Complete 03/11/2023 09:37:00 03/11/2023 09:45:27 03/11/2023 09:45:27 Bed Assign Complete 03/11/2023 09:39:58 03/11/2023 09:39:58 03/11/2023 09:39:58 Dr Exam Complete 03/11/2023 09:39:58 03/11/2023 09:40:57 03/11/2023 09:40:57 RN Exam Complete 03/11/2023 09:39:58 03/11/2023 10:21:40 03/11/2023 10:21:40 Registration Complete 03/11/2023 09:40:57 03/11/2023 09:49:25 03/11/2023 10:22:17 EKG Complete 03/11/2023 09:44:29 03/11/2023 10:41:34 NPO Request 03/11/2023 09:50:56 Pending Labs Complete 03/11/2023 09:50:56 03/11/2023 10:46:29 Lab Complete 03/11/2023 09:50:56 03/11/2023 10:39:41 Patient Care Request 03/11/2023 09:50:56 RT Request 03/11/2023 09:50:56 CT Complete 03/11/2023 09:50:56 03/11/2023 10:24:31 03/11/2023 10:42:06 Pending Labs Complete 03/11/2023 09:57:07 03/11/2023 09:57:07 03/11/2023 09:57:08 Pending Labs Complete 03/11/2023 10:18:54 03/11/2023 10:18:54 03/11/2023 10:34:21 Lab Complete 03/11/2023 10:18:54 03/11/2023 10:18:54 03/11/2023 10:34:21 Reg Complete Request 03/11/2023 10:22:17 Reg Bed Request Complete 03/11/2023 10:22:17 03/11/2023 10:22:17 03/11/2023 10:22:17 Pending Labs Complete 03/11/2023 10:39:41 03/11/2023 10:39:41 03/11/2023 10:39:49 Lab Complete 03/11/2023 10:39:41 03/11/2023 10:39:41 03/11/2023 10:39:49 Pending Labs Complete 03/11/2023 10:42:43 03/11/2023 10:42:43 03/11/2023 10:42:44 X-Ray Complete 03/11/2023 10:53:43 03/11/2023 10:59:57 03/11/2023 11:12:02 Wet Read Complete 03/11/2023 11:12:02 03/11/2023 11:13:02 03/11/2023 11:13:02 CT Complete 03/11/2023 11:45:12 03/11/2023 12:04:44 03/11/2023 13:08:34 MRI Complete 03/11/2023 11:45:12 03/11/2023 12:04:08 03/11/2023 12:30:07 Discharge Complete 03/11/2023 13:56:53 03/11/2023 14:16:26 03/11/2023 14:16:26 Transfer Complete 03/11/2023 14:16:27 03/11/2023 14:16:27 03/11/2023 14:16:27 ADDRESS: [address] [facility] [id number] PHYS DOC NOTES: MEDICAL INFORMATION: Prescriptions Given: New Medications [id number], [address], [place] [id number], [phone] meclizine (Antivert 25 mg Tab) 1 Tablets By Mouth 3 times a day. Take one by mouth three times a day. Refills: 0. Medications to Continue with No Changes Other Medications chlorthalidone 25 Milligram By Mouth every day. dulaglutide (Trulicity Pen 0.75 mg/0.5 mL subcutaneous solution) Subcutaneous every week. empagliflozin (Jardiance 25 mg oral tablet) 1 Tablets By Mouth once a day (in the morning). insulin detemir (Levemir 100 units/mL Injection-Insulin) 20 Units Subcutaneous every day. pantoprazole 40 Milligram By Mouth every day. polyethylene glycol 3350 (MiraLax 3350 Oral Pwdr for Recon 249 gram) 17 Gram By Mouth every day. Refills: 0. verapamil (verapamil 240 mg ER Tab) 1 Tablets By Mouth once a day (in the evening). PATIENT EDUCATION INFORMATION: Instructions: Vertigo; Tinnitus Follow up: With: Address: When: Dandy Martinez, [address] [place] [address] Business (1) In 3 days 03/14/2023 With: Address: When: Daniele Nogueira, [address] [place] [address] Business (1) In 3 days DIAGNOSIS: Tinnitus, left; Vertigo Normal [facility] ED Note-Physicianon 03-11-20 ED Note-Physician Basic Information Time Seen: Olu Young DO 03/11/2023 09:40 Chief Complaint dizziness, pain on left side of face/throat History of Present Illness 62 female presents emergency department with left-sided facial numbness. Patient states that she has had the symptoms since Saturday. She describes left-sided facial numbness and some numbness into her left neck and shoulder region as well. She has left arm numbness but states this is not new she has had this for quite some time. She denies any weakness to the upper or lower extremities no dysarthria no aphasia. She does have associated ringing in the ears also has mild headache that comes across the forehead as well as some dizziness. She states that she is feeling off balance when she is walking at times. She is never had this before but does state many years ago she was diagnosed with a TIA she is not on any blood thinners. She does take medications for her blood pressure and diabetes. She was previously on cholesterol medication but did not get these refilled. She denies any diplopia but does describe some subjective blurred vision at times. No other aggravating or relieving factors no other associated symptoms no other prior treatments or complaints. Family: Reviewed and noncontributory Social: lives at home Review of systems negative unless otherwise specified in the HPI. Physical Exam Vitals & Measurements T: 36.8 ?C(Oral) HR: 65(Peripheral) RR: 16 BP: 191/77 SpO2: 97% HT: 147 cm WT: 71 kg BMI: 32.86 General: The patient appears well and in no apparent distress. Patient is resting comfortably on cart. Skin: Warm, dry, no pallor noted. Head: Normocephalic, atraumatic Neck: No JVD Eye: PERRLA, EOMI ENT: Moist mucus membranes Cardiovascular: Regular rate normal peripheral perfusion Respiratory: No respiratory distress no accessory muscle use no obvious audible wheezing Chest Wall: no deformity Musculoskeletal: normal ROM, no deformity, no swelling GI: Soft no obvious distention. No rebound or rigidity. No guarding. No tenderness. Neurological: A&O moves all extremities equal strength and symmetry. Diminished sensation to the left upper extremity than the left side of the face. Stroke scale score is 1. No dysarthria no aphasia no ataxia. Psychiatric: Cooperative and appropriate Procedure Patient is not a tPA candidate given symptom onset greater than 4 and half hours ago and stroke scale score is only 1. Medical Decision Making MEDICAL DECISION MAKING Number and Complexity of Problems Differential Diagnosis: MDM Data External documents reviewed: My EKG interpretation: in chart if applicable My CT interpretation: in chart if applicable My X-ray interpretation: in chart if applicable My Ultrasound interpretation: Decision rules/scores evaluated: Discussed with: Treatment and Disposition ED Course: Work-up in the ER has been reviewed and noted. Initial CT read by the radiologist as no acute pathology. I did explain to the patient that normally we would admit somebody at this time however given that her symptoms been ongoing for 3 to 4 days I did feel that we might be able to complete the work-up here without having to admit the patient to the hospital. Therefore she was agreeable to MRI and CT angiogram of the head and neck and these were read by the radiologist as negative. Patient does feel better at this time. She did state that she had that region behind her left ear and some fullness there therefore I did examine her tympanic membranes bilaterally which were essentially unremarkable other than some old scarring and perhaps some fluid in that left ear but no signs of infection. Patient will be discharged home on Antivert with neurology referral and she is comfortable with this plan. She is provided with a note for work. Shared decision making: Code status: Assessment/Plan Tinnitus, left (H93.12: Tinnitus, left ear) Vertigo (R42: Dizziness and giddiness) Orders: meclizine, 25 mg = 1 tab(s), Oral, TID, Take one by mouth three times a day, # 21 tab(s), Refills(s) 0, Pharmacy: [id number], 147, cm, 03/11/23 9:45:00 EDT, Height/Length Dosing, 71, kg, 03/11/23 9:45:00 EDT, Weight Dosing Automated Diff Basic Metabolic Panel CBC w/ Auto Diff [place] Stroke Scale Communication Order Physician to Nursing Continuous Pulse Oximetry CT Head or Brain w/o Contrast CTA Head CTA Neck ED Cardiac Monitoring eGFR Extra SST Tube MRI Brain w/o Contrast Oxygen Therapy PT & PTT Routine Capillary Glucose POC Saline Lock Insert Stroke Quality Measures Troponin 0 Hr. Vital Signs XR Chest 2 Views Disposition Plan Discharge Prescription List Prescriptions Antivert 25 mg Tab, 25 mg= 1 tab(s), Oral, TID Follow-up With When Contact Information Dandy Crandall In 3 days 03/14/2023 EDT [employer] [address]- Business (1) Additional Instructions: Daniele Link In 3 days [address] (more content not included)... Normal [facility] Comment on above: Result Comment: Elec tronically Signed By: Olu Young DO\.br\Date and Time Signed: 03/11/23 13:57 EDT ED Patient Education Noteon 03-11-2023 ED Patient Education Note Neurology Vertigo Vertigo is the feeling that you or your surroundings are moving when they are not. This feeling can come and go at any time. Vertigo often goes away on its own. Vertigo can be dangerous if it occurs while you are doing something that could endanger yourself or others, such as driving or operating machinery. Your health care provider will do tests to try to determine the cause of your vertigo. Tests will also help your health care provider decide how best to treat your condition. Follow these instructions at home: Eating and drinking ? Dehydration can make vertigo worse. Drink enough fluid to keep your urine pale yellow. ? Do not drink alcohol. Activity ? Return to your normal activities as told by your health care provider. Ask your health care provider what activities are safe for you. ? In the morning, first sit up on the side of the bed. When you feel okay, stand slowly while you hold onto something until you know that your balance is fine. ? Move slowly. Avoid sudden body or head movements or certain positions, as told by your health care provider. ? If you have trouble walking or keeping your balance, try using a cane for stability. If you feel dizzy or unstable, sit down right away. ? Avoid doing any tasks that would cause danger to you or others if vertigo occurs. ? Avoid bending down if you feel dizzy. Place items in your home so that they are easy for you to reach without bending or leaning over. ? Do not drive or use machinery if you feel dizzy. General instructions ? Take uvqa-fvh-mjvrfbs and prescription medicines only as told by your health care provider. ? Keep all follow-up visits. This is important. Contact a health care provider if: ? Your medicines do not relieve your vertigo or they make it worse. ? Your condition gets worse or you develop new symptoms. ? You have a fever. ? You develop nausea or vomiting, or if nausea gets worse. ? Your family or friends notice any behavioral changes. ? You have numbness or a prickling and tingling sensation in part of your body. Get help right away if you: ? Are always dizzy or you faint. ? Develop severe headaches. ? Develop a stiff neck. ? Develop sensitivity to light. ? Have difficulty moving or speaking. ? Have weakness in your hands, arms, or legs. ? Have changes in your hearing or vision. These symptoms may represent a serious problem that is an emergency. Do not wait to see if the symptoms will go away. Get medical help right away. Call your local emergency services (911 in the [place] Do not drive yourself to the hospital. Summary ? Vertigo is the feeling that you or your surroundings are moving when they are not. ? Your health care provider will do tests to try to determine the cause of your vertigo. ? Follow instructions for home care. You may be told to avoid certain tasks, positions, or movements. ? Contact a health care provider if your medicines do not relieve your symptoms, or if you have a fever, nausea, vomiting, or changes in behavior. ? Get help right away if you have severe headaches or difficulty speaking, or you develop hearing or vision problems. This information is not intended to replace advice given to you by your health care provider. Make sure you discuss any questions you have with your health care provider. Document Revised: 07/12/2021 Document Reviewed: 07/12/2021 [employer] Patient Education ? 2022 [employer] Tinnitus Tinnitus refers to hearing a sound when there is no actual source for that sound. This is often described as ringing in the ears. However, people with this condition may hear a variety of noises, in one ear or in both ears. The sounds of tinnitus can be soft, loud, or somewhere in between. Tinnitus can last for a few seconds or can be constant for days. It may go away without treatment and come back at various times. When tinnitus is constant or happens often, it can lead to other problems, such as trouble sleeping and trouble concentrating. Almost everyone experiences tinnitus at some point. Tinnitus is not the same as hearing loss. Tinnitus that is long-lasting (chronic) or comes back often (recurs) may require medical attention. What are the causes? The cause of tinnitus is often not known. In some cases, it can result from: ? Exposure to loud noises from machinery, music, or other sources. ? An object (foreign body) stuck in the ear. ? Earwax buildup. ? Drinking alcohol or caffeine. ? Taking certain medicines. ? Age-related hearing loss. It may also be caused by medical conditions such as: ? Ear or sinus infections. ? Heart diseases or high blood pressure. ? Allergies. ? M?ni?re's disease. ? Thyroid problems. ? Tumors. ? A weak, bulging blood vessel (aneurysm) near the ear. What increases the risk? The following factors may make you more likely to develop this condition: ? Exposure to (more content not included)... Normal [facility] ED Patient Summaryon 023 ED Patient Summary [place] [id number] Patient Discharge Instructions Person Information Name: IDA ZELAYA Age: 62 Years Arrival Date: 03/11/2023 09:37:00 Discharge Diagnosis: Tinnitus, left; Vertigo Primary Care Physician: Daniele Avina DO Provider Information Primary Provider: Olu Young DO Advanced Pumper Gager:None The exam and treatment you received in the Emergency Department were for an urgent problem and are not intended as complete care. It is important that you follow up with a doctor, nurse practitioner, or physician?s employment assistant for ongoing care. If your symptoms become worse or you do not improve as expected and you are unable to reach your usual health care provider, you should return to the Emergency Department. We are available 24 hours a day. BARBARA ZELAYAORAH has been given the following list of patient education materials, prescriptions and follow-up instructions: Follow-up Instructions: With: Address: When: Dandy ROJASKeisha, [address] [place] [address] Business (1) In 3 days 03/14/2023 With: Address: When: Daniele Addy [address], [address] [place] [address] Business (1) In 3 days In the event that this physician does not participate in your insurance network, please consult with your insurance company to find a nearby participating provider. Patient Education Materials: Vertigo; Tinnitus A MESSAGE TO ALL PATIENTS REGARDING OPIOIDS PRESCRIPTION OPIOIDS: WHAT YOU NEED TO KNOW Prescription opioids can be used to help relieve vnntbvpb-qm-jonvls pain and are often prescribed following a surgery or injury, or for certain health conditions. These medications can be an important part of the treatment but also come with serious risks. It is important to work with your healthcare provider to make sure you are getting the safest, most effective care. WHAT ARE THE RISKS AND SIDE EFFECTS OF OPIOID USE? Prescription opioids carry serious risks of addiction and overdose, especially with prolonged use. An opioid overdose, often marked by slowed breathing, can cause sudden . The use of prescription opioids can have a number of side effects as well, even when taken as directed: ? Tolerance?meaning you might need to take more of the medication for the same pain relief ? Physical dependence?meaning you have symptoms of withdrawal when a medication is stopped ? Increased sensitivity to pain ? Constipation ? Nausea, vomiting, and dry mouth ? Sleepiness and dizziness ? Confusion ? Depression ? Low levels of testosterone that can result in lower sex drive, energy, and strength ? Itching and sweating RISKS ARE GREATER WITH: ? History of drug misuse, substance use disorder, or overdose ? Mental health conditions (such as depression or anxiety) ? Sleep apnea ? Older age (65 years and older) ? Avoid alcohol while taking prescription opioids. Also, unless specifically advised by your health care provider, medications to avoid include: ? Benzodiazepines (such as Xanax or Valium) ? Muscle relaxants (such as Soma or Flexeril) ? Hypnotics (such as Ambien or Lunesta) ? Other prescription opioids KNOW YOUR OPTIONS Talk to your health care provider about ways to manage your pain that don?t involve prescription opioids. Some of these options may actually work better and have fewer risks and side effects. Options may include: ? Pain relievers such as acetaminophen, ibuprofen, and naproxen ? Some medication that are also used for depression or seizures ? Physical therapy and exercise ? Cognitive behavioral therapy, a psychological, goal-directed approach, in which patients learn how to modify physical, behavioral, and emotional triggers of pain and stress. IF YOU ARE PRESCRIBED OPIOIDS FOR PAIN: ? Never take opioids in greater amounts or more often than prescribed. ? Follow up with your primary health care provider. o Work together to create a plan on how to manage your pain. o Talk about ways to help manage your pain that don?t involve prescription opioids. o Talk about any and all concerns and side effects. ? Help prevent misuse and abuse o Never sell or share prescription opioids. o Never use another person?s prescription opioids. ? Store prescription opioids in a secure place and out of reach of others (this may include visitors, children, friends, and family). ? Safely dispose of unused prescription opioids: Find your community drug take-back program or your pharmacy mail-back program, or flush them down the toilet, following guidance from the Food and Drug Administration (www.fda.gov/Drugs/Re sourcesForYou). ? Visit www.cdc.gov/drugoverd ose to learn about the risks of opioids abuse and overdose. ? If you believe you may be struggling with addiction, tell your health (more content not included)... Normal [facility] MRI Brain w/o Contraston MRI Brain w/o Contrast Exam Date/Time: 03/11/2023 12:30 EDT Reason for Exam: Neuro deficit, acute, stroke suspected Report IMPRESSION: There are no acute intracranial changes, no evidence of ischemia or hemorrhage. There are no regions of signal abnormality. EXAMINATION: MRI Brain w/o Contrast CLINICAL HISTORY: Neuro deficit, acute, stroke suspected COMPARISONS: Brain CT from 03/11/2023 TECHNIQUE: Multiplanar multisequence images of the brain were obtained without contrast. Diffusion perfusion imaging was obtained. BRAIN MRI FINDINGS: There are no extra-axial collections. There is no evidence of hemorrhage. There are no areas of perfusion diffusion signal abnormality to suggest ischemia. The susceptibility images do not demonstrate evidence of hemosiderin deposition within the brain parenchyma or the leptomeninges. There is preservation of the garcia-white matter differentiation. There are no areas of signal abnormality within the brain parenchyma or the posterior fossa to suggest lesion. The sulci and ventricles are within normal limits without evidence of hydrocephalus. The midline structures are intact, the corpus callosum is within normal limits. The region of the pineal gland and the sella turcica are unremarkable. There are no space-occupying lesions in the posterior fossa. The basilar cisterns are patent. The craniocervical junction is unremarkable. The visualized portions of the orbits are within normal limits, the globes are intact. The visualized portions of the paranasal sinuses are within normal limits. The calvarium and soft tissues are unremarkable. Report Ordering Provider: Olu Young FINAL REPORT Dictated: 03/11/2023 1:07 pm Joe Carmona MD, V. Signed (Electronic Signature): 03/11/2023 1:07 pm Signed by: Joe Carmona MD, V. Transcribed by: SUSAN Technologist: PATY Technical Comments None Normal [facility] PT & PTTon 03-11-2023 aPTT Coag (PPP) [Time] 27.5 second(s) Normal 25.1-36.5 [facility] Comment on above: Result Comment: Para meter 15 days - 4 weeks 1 - 5 months 6 - 11 months 1 - 5 years 6 - 10 years 11 - 17 years PTT Mean: 35.4 (27.6-45.6) Mean: 33.5 (24.8-40.7) Mean: 32.4 (25.1-40.7) Mean: 31.6 (24.0-39.2) Mean: 31.6 (26.9-38.7) Mean: 31.0 (24.6-38.4) Pediatric Reference ranges were obtained from a study by km Wong al. prepared from 1437 samples obtained at 7 different centers using the same coagulation reagent and instrumentation as [facility]. Currently there are no coagulation studies available worldwide for children to 14 days, and no normal ranges. Heparin therapeutic range (represented by Anti-Factor Xa activity of 0.2 - 0.4 U/mL) corresponds to PTT of 56.6 - 109.0 sec. Performed By: #### 1 [id number], [id number] ####[facility] [id number] [place] [address] INR Coag (PPP) [Relative time] 1.0 {INR} Invalid Interpretation Code [facility] Comment on above: Result Comment: INR results are specifically intended to assess patients stabilized on long-term Anticoagulation therapy suggested INR?s ?Less Intensive Anticoagulation? 2.0 ? 3.0 Conventional Range 3.0 ? 4.5 Performed By: #### 1 [id number], [id number], [id number] ####[facility] [id number] [place] [address] PT Coag (PPP) [Time] 10.7 second(s) Normal 9.4-12.5 [facility] Comment on above: Result Comment: 15 d ays - 4 weeks 1 - 5 months 6 -11 months 1 ? 5 years 6 ? 10 years 11 -17 years Mean: 11.2 (9.5 ? 12.6) Mean: 11.0 (9.7 ? 12.8) Mean: 11.0 (9.8 ? 13.0) Mean: 11.3 (9.9 ? 13.4) Mean: 11.7 (10.0 ? 14.6) Mean: 11.8 (10.0 - 14.1) Pediatric Reference ranges were obtained from a study by Wilmar Mosher et al. prepared from 1437 samples obtained at 7 different centers using the same coagulation reagent and instrumentation as [facility]. Currently there are no coagulation studies available worldwide for children to 14 days, and no normal ranges. Performed By: #### 1 [id number], [id number], [id number], [id number], [id number], [id number] ####[facility] [address] [place] [address] Prescriptions/Work Noteson 0 03-11-2023 Prescriptions/Work Notes [id number] .00CD:127 Normal [facility] RAD - MRI Screening Formon 0 03-11-2023 RAD - MRI Screening Form [id number]# 1.00CD:127 Normal [facility] Troponin 0 Hr.on 03-11-2023 Troponin I.cardiac [Mass/Vol] 3.20 pg/mL Low 10.10-27.10 [facility] Comment on above: Result Comment: The 95% CI (Confidence Interval) PPV (Positive Predictive Value) for myocardial infarction in females is 38 pg/mL, in males 51 pg/mL. The results should be used in conjunction with clinical conditions of myocardial infarction. (Access High Sensitivity Troponin I Instructions For Use, [employer], March 2018) Performed By: #### 1 [id number], [id number], [id number], [id number], [id number], [id number] ####[facility] [address] [place] [address] XR Chest 2 Viewson XR Chest 2 Views Exam Date/Time: 03/11/2023 11:12 EDT Reason for Exam: Congestion Report IMPRESSION: There are no acute cardiopulmonary changes. CLINICAL HISTORY: Congestion EXAMINATION: XR Chest 2 Views COMPARISON: FINDINGS: The cardiomediastinal silhouette is unremarkable. The lungs are free of infiltrates effusions or consolidations. There are no acute osseous changes. Ordering Provider: Olu Young FINAL REPORT Dictated: 03/11/2023 11:22 am Joe Carmona MD, V. Signed (Electronic Signature): 03/11/2023 11:22 am Signed by: Joe Carmona MD, V. Transcribed by: SUSAN Technologist: PHILIPP Technical Comments Radiation Dose: Ka,r in mGy = na DAP = na Normal [facility] eGFRon 03-11-2023 GFR/1.73 sq M.predicted among non-blacks MDRD (S/P/Bld) [Vol rate/Area] 99 mL/min/1.73 m2 Normal >=59 [facility] Comment on above: Order Comment: Order added by Discern Expert. Result Comment: Flat Folding Machine Operator louise kidney disease could be indicated at eGFR's of less than 60 mL/min/1.73m2. Kidney failure is indicated at less than 15 mL/min/1.73m2. Performed By: #### 1 [id number], [id number], [id number], [id number], [id number], [id number] ####[facility] [address] [place] [address] Registrationon 02-08-2023 Registration [id number]# 1.00CD:127 Normal [facility] Consenton 02-07-2023 Consent [id number]# 1.00CD:127 Normal [facility] COVID-19 Antigenon 2 COVID-19 Antigen Healthcare Worker?: N Reference Range: Negative Negative results, from patients with symptom onset beyond five days, should be treated as presumptive and confirmation with a molecular assay, if necessary, for patient management, may be performed. Negative results do not rule out COVID-19 and should not be used as the sole basis for treatment or patient management decisions, including infection control decisions. Negative results should be considered in the context of a patient's recent exposures, history and the presence of clinical signs and symptoms consistent with COVID-19. The Vikash SARS Antigen APRYL does not differentiate between SARS-CoV and SARS-CoV-2. This test was developed and its performance characteristic determined by [facility] and validated at [facility]. This test has not been FDA cleared or approved. This test has been authorized by FDA under an Emergency Use Authorization (EUA). This test has been validated in accordance with the FDA's Guidance Document (Policy for Diagnostics Testing in Laboratories Certified to Perform High Complexity Testing under CLIA prior to Emergency Use Authorization for Coronavirus Disease-2019 during the Public Health Emergency) issued on November 26, 2019. This test is only authorized for the duration of time the declaration that circumstances exist justifying the authorization of the emergency use of in vitro diagnostic tests for detection of SARS-CoV-2 virus and/or diagnosis of COVID-19 infection under section 564(b)(1) of the Act, 21 U.S.C. 360bbb-3(b)(1), unless the authorization is terminated or revoked sooner. SARS-CoV+SARS-CoV-2 (COVID-19) Ag [Presence] in Respiratory specimen by Rapid immunoassay Negative for SARS Antigen by APRYL PERFORMED BY: [facility] [address] [place] [place] [id number] PATHOLOGIST TEACHER LIP READING ROSA GASPAR M.D. Normal [facility] Comment on above: Performed By: #### C OVID 19 [facility], COVID-19 ANDRES SUHEG #### [facility] [address] [place] [address] [facility] COVID-19 [facility] 02-05-2022 SARS-CoV-2 (COVID-19) RNA EDMUND+probe Ql (Unsp spec) Negative Normal Negative [facility] Comment on above: Order Comment: Healt hcare Worker?: N Result Comment: Testing for SARS-CoV-2 by RT-PCR This test was developed and its performance characteristics determined by [employer] and validated at the [facility]. This test has not been FDA cleared or approved. This test has been authorized by FDA under an Emergency Use Authorization (EUA). This test has been validated in accordance with the FDA's Guidance Document (Policy for Diagnostics Testing in Laboratories Certified to Perform High Complexity Testing under CLIA prior to Emergency Use Authorization for Coronavirus Disease-2019 during the Public Health Emergency) issued on November 26, 2019. This test is only authorized for the duration of time the declaration that circumstances exist justifying the authorization of the emergency use of in vitro diagnostic tests for detection of SARS-CoV-2 virus and/or diagnosis of COVID-19 infection under section 564(b)(1) of the Act, 21 U.S.C. 360bbb-3(b)(1), unless the authorization is terminated or revoked sooner. PERFORMED BY: [facility] [address] [place] [address] PATHOLOGIST TEACHER LIP READING ROSA GASPAR M.D. Performed By: #### C OVID 19 [facility], COVID-19 VIKASH, SOFIANEG #### [facility] [address] Vikash Ag Negativeon 02-06-20 Vikash Ag Negative Negative Normal Negative [facility] Comment on above: Result Comment: This is a duplicate Vikash SARS Antigen (APRYL) result to be used for statistical tracking purpose only. PERFORMED BY: [facility] [address] [place] [address] PATHOLOGIST TEACHER LIP READING ROSA GASPAR M.D. Performed By: #### C OVID 19 [facility], COVID-19 VIKASH, SOFIANEG #### [facility] [address] [place] [id number] [facility] Amphetamine Screen Ql (U)Ord ered By: Luis Guerrero on 02-04-2022 Amphetamines Ql (U) Negative Negative [facility] Barbiturates [Presence] in U rineOrdered By: Luis Guerrero on 02-04-2022 Barbiturates Ql (U) Negative Negative [facility] Basophils Auto (Bld) [#/Vol] Ordered By: Luis Guerrero on 02-04-2022 Basophils (Bld) [#/Vol] 0.0 10*3/uL 0.0-0.2 [facility] Basophils/100 WBC Auto (Bld) Ordered By: Luis Guerrero on 02-04-2022 Basophils/100 WBC (Bld) 0.3 % [facility] Benzodiazepines [Presence] i n UrineOrdered By: Luis Guerrero on 02-04-2022 Benzodiazepines Ql (U) Negative Negative [facility] Bilirubin Test strip Ql (U)O rdered By: Luis Guerrero on 02-04-2022 Bilirubin Ql (U) Negative Negative [facility] Blood hemoglobin measurement (mass/volume)Ordered By: Luis Guerrero on 02-04-2022 Hemoglobin (Bld) [Mass/Vol] 13.7 g/dL 11.8-15.4 [facility] Blood leukocytes automated c ount (number/volume)Ordered By: Luis Guerrero on 02-04-2022 WBC (Bld) [#/Vol] 5.7 10*3/uL 4.5-11.0 [facility] Body fluid albumin measureme nt (mass/volume)Ordered By: Luis Guerrero on 02-04-2022 Albumin (Body fld) [Mass/Vol] 4.3 g/dL 3.2-5.5 [facility] COVID-19 SOFIAOrdered By: Andrés Guerrero on 02-04-2022 SARS-CoV+SARS-CoV-2 (COVID-19) Ag IA.rapid Ql (Resp) Negative Negative [facility] Comment on above: This is a duplicate Vikash SARS Antigen (APRYL) result to be used for statistical tracking purpose only. Cannabinoids [Presence] in U rine by Screen methodOrdered By: Luis Guerrero on 02-04-2022 Cannabinoids Screen Ql (U) Negative Negative [facility] Comment on above: These are unconfirme d results and should not be used for legal purposes. Drug Cut-Off Concentration: AMPH 1000 ng/mL IRENE 200 ng/mL SHANNA 200 ng/mL COCM 300 ng/mL OP 300 ng/mL PCP 25 ng/mL THC 20 ng/mL Color Auto (U)Ordered By: Andrés Guerrero on 02-04-2022 Color (U) Yellow Yellow [facility] Complete Blood Count Auto Di ffon 02-04-2022 Basophils (Bld) [#/Vol] 0.0 10*3/uL Normal 0.0-0.2 [facility] Comment on above: Result Comment: PERF ORMED BY: [place] [address] PATHOLOGIST TEACHER LIP READING ROSA GASPAR M.D. Performed By: #### C BC, CMP, ETOH #### [facility] [address] [place] [address] [place] Basophils/100 WBC (Bld) 0.3 % Normal . [facility] Comment on above: Performed By: #### C BC, CMP, ETOH #### [facility] [address] [place] [address] [place] Eosinophils (Bld) [#/Vol] 0.2 10*3/uL Normal 0.0-0.45 [facility] Comment on above: Performed By: #### C BC, CMP, ETOH #### [facility] [address] [place] [address] [place] Eosinophils/100 WBC (Bld) 2.7 % Normal . [facility] Comment on above: Performed By: #### C BC, CMP, ETOH #### [facility] [address] Erythrocyte distribution width (RBC) [Ratio] 13.6 % Normal 11.9-15.3 [facility] Comment on above: Performed By: #### C BC, CMP, ETOH #### [facility] [address] Hematocrit (Bld) [Volume fraction] 40.1 % Normal 34.0-46.4 [facility] Comment on above: Performed By: #### C BC, CMP, ETOH #### [facility] [address] Hemoglobin (Bld) [Mass/Vol] 13.7 g/dL Normal 11.8-15.4 [facility] Comment on above: Performed By: #### C BC, CMP, ETOH #### [facility] [address] [place] [address] [place] Lymphocytes (Bld) [#/Vol] 2.4 10*3/uL Normal 1.00-4.8 [facility] Comment on above: Performed By: #### C BC, CMP, ETOH #### [facility] [address] [place] [address] [place] Lymphocytes/100 WBC (Bld) 41.0 % Normal . [facility] Comment on above: Performed By: #### C BC, CMP, ETOH #### [facility] [address] [place] [address] [place] MCH (RBC) [Entitic mass] 30.6 pg Normal 24.7-34.3 [facility] Comment on above: Performed By: #### C BC, CMP, ETOH #### [facility] [address] [place] [address] [place] MCV (RBC) [Entitic vol] 89.7 fL Normal 80-100 [facility] Comment on above: Performed By: #### C BC, CMP, ETOH #### [facility] [address] Mean Corpuscular HGB Conc 34.1 g/dL Normal 32.0-35.0 [facility] Comment on above: Performed By: #### C BC, CMP, ETOH #### [facility] [address] [place] [address] [place] Monocytes (Bld) [#/Vol] 0.4 10*3/uL Normal 0.0-0.8 [facility] Comment on above: Performed By: #### C BC, CMP, ETOH #### [facility] [address] [place] [address] [place] Monocytes/100 WBC (Bld) 7.3 % Normal . [facility] Comment on above: Performed By: #### C BC, CMP, ETOH #### [facility] [address] [place] [address] [place] Neutrophils (Bld) [#/Vol] 2.8 10*3/uL Normal 1.8-7.7 [facility] Comment on above: Performed By: #### C BC, CMP, ETOH #### [facility] [address] [place] [address] [place] Neutrophils/100 WBC (Bld) 48.7 % Normal . [facility] Comment on above: Performed By: #### C BC, CMP, ETOH #### [facility] [address] [place] [address] [place] Nucleated RBC/100 WBC (Bld) [Ratio] 0.0 % Normal 0-0.5 [facility] Comment on above: Performed By: #### C BC, CMP, ETOH #### [facility] [address] [place] [address] [place] Platelet mean volume (Bld) [Entitic vol] 8.4 fL Normal 6.3-10.7 [facility] Comment on above: Performed By: #### C BC, CMP, ETOH #### [facility] [address] [place] [address] [place] Platelets (Bld) [#/Vol] 177 10*3/uL Normal 150-450 [facility] Comment on above: Performed By: #### C BC, CMP, ETOH #### [facility] [address] [place] [address] RBC (Bld) [#/Vol] 4.47 10*6/uL Normal 3.60-5.00 [facility] Comment on above: Performed By: #### C BC, CMP, ETOH #### [address] WBC (Bld) [#/Vol] 5.7 10*3/uL Normal 4.5-11.0 [facility] Comment on above: Performed By: #### C BC, CMP, ETOH #### [address] Comprehensive Metabolic Pane jasiel 02-04-2022 Albumin [Mass/Vol] 4.3 g/dL Normal 3.2-5.5 [facility] Comment on above: Performed By: #### C BC, CMP, ETOH #### [address] Albumin/Globulin [Mass ratio] 1.4 {ratio} Normal [facility] Comment on above: Performed By: #### C BC, CMP, ETOH #### [address] ALP [Catalytic activity/Vol] 74 U/L Normal 32-92 [facility] Comment on above: Performed By: #### C BC, CMP, ETOH #### [address] ALT [Catalytic activity/Vol] 70 U/L High 10-60 [facility] Comment on above: Performed By: #### C BC, CMP, ETOH #### [address] AST [Catalytic activity/Vol] 40 U/L Normal 10-42 [facility] Comment on above: Performed By: #### C BC, CMP, ETOH #### [address] Bilirubin [Mass/Vol] 0.5 mg/dL Normal 0.3-1.2 [facility] Comment on above: Performed By: #### C BC, CMP, ETOH #### [facility] [address] Calcium [Mass/Vol] 9.5 mg/dL Normal 8.2-10.2 [facility] Comment on above: Performed By: #### C BC, CMP, ETOH #### [facility] [address] Chloride [Moles/Vol] 102 mmol/L Normal 95-114 [facility] Comment on above: Performed By: #### C BC, CMP, ETOH #### [facility] [address] CO2 [Moles/Vol] 27.5 mmol/L Normal 22.0-30.0 [facility] Comment on above: Performed By: #### C BC, CMP, ETOH #### [address] Creatinine [Mass/Vol] 0.69 mg/dL Normal 0.44-1.03 [facility] Comment on above: Performed By: #### C BC, CMP, ETOH #### [place] [address] [place] Creatinine Clr Calc Pharmacy 76.39 [facility] Comment on above: Result Comment: PERF ORMED BY: [place] [address] PATHOLOGIST TEACHER LIP READING ROSA GASPAR M.D. Performed By: #### C BC, CMP, ETOH #### [address] Estimated GFR ( Brandy > 60 [facility] Comment on above: Result Comment: GFR estimated reference range: According to KDOQI guidelines, <60 ml/min/1.73m2 is sufficient to diagnose a patient with chronic kidney disease. Performed By: #### C BC, CMP, ETOH #### [place] [address] [place] Estimated GFR (Non- Am > 60 Normal [facility] Comment on above: Performed By: #### C BC, CMP, ETOH #### [facility] [address] Globulin (S) [Mass/Vol] 3.1 g/dL Normal [facility] Comment on above: Performed By: #### C BC, CMP, ETOH #### [facility] [address] [place] [address] [place] Glucose [Mass/Vol] 188 mg/dL High 70-100 [facility] Comment on above: Result Comment: [facility] Glucose Reference Range is dependent on time and content of last meal. Glucose of more than 200 mg/dL in a nonstressed, ambulatory subject supports the diagnosis of Diabetes Mellitus. ADA recommended reference range Performed By: #### C BC, CMP, ETOH #### [facility] [address] Potassium [Moles/Vol] 3.7 mmol/L Normal 3.5-5.1 [facility] Comment on above: Performed By: #### C BC, CMP, ETOH #### [facility] [address] [place] [address] [place] Protein [Mass/Vol] 7.4 g/dL Normal 6.1-7.9 [facility] Comment on above: Performed By: #### C BC, CMP, ETOH #### [facility] [address] [place] [address] [place] Sodium [Moles/Vol] 143 mmol/L Normal 136-146 [facility] Comment on above: Performed By: #### C BC, CMP, ETOH #### [facility] [address] [place] [address] [place] Urea nitrogen [Mass/Vol] 7 mg/dL Low 9-23 [facility] Comment on above: Performed By: #### C BC, CMP, ETOH #### [facility] [address] [place] [address] [place] Creatinine and Glomerular fi ltration rate.predicted panel (S/P/Bld)Ordered By: Luis Guerrero on 02-04-2022 Creatinine [Mass/Vol] 0.69 mg/dL 0.44-1.03 [facility] Drug Screen,Urineon 02-05-20 Amphetamine Screen,Urine Negative Normal Negative [facility] Comment on above: Performed By: #### U RDS, UA #### [address] Barbiturate Screen,Urine Negative Normal Negative [facility] Comment on above: Performed By: #### U RDS, UA #### [address] Benzodiazepines Screen,Urine Negative Normal Negative [facility] Comment on above: Performed By: #### U RDS, UA #### [address] Cannabinoid Screen,Urine Negative Normal Negative [facility] Comment on above: Result Comment: Thes e are unconfirmed results and should not be used for legal purposes. Drug Cut-Off Concentration: AMPH 1000 ng/mL IRENE 200 ng/mL SHANNA 200 ng/mL COCM 300 ng/mL OP 300 ng/mL PCP 25 ng/mL THC 20 ng/mL PERFORMED BY: [place] [address] PATHOLOGIST TEACHER LIP READING ROSA GASPAR M.D. Performed By: #### U RDS, UA #### [address] Cocaine Screen,Urine Negative Normal Negative [facility] Comment on above: Performed By: #### U RDS, UA #### [place] [address] [place] Opiate Screen,Urine Negative Normal Negative [facility] Comment on above: Performed By: #### U RDS, UA #### [facility] [address] [place] [address] Phencyclidine Screen,Urine Negative Normal Negative [facility] Comment on above: Performed By: #### U RDS, UA #### [address] Eosinophils Auto (Bld) [#/Vo l]Ordered By: Luis Guerrero on 02-04-2022 Eosinophils (Bld) [#/Vol] 0.2 10*3/uL 0.0-0.45 [facility] Eosinophils/100 WBC Auto (Bl d)Ordered By: Luis Guerrero on 02-04-2022 Eosinophils/100 WBC (Bld) 2.7 % [facility] Erythrocyte distribution wid th Auto (RBC) [Ratio]Ordered By: Luis Guerrero on 02-04-2022 Erythrocyte distribution width (RBC) [Ratio] 13.6 % 11.9-15.3 [facility] Estimated glomerular filtrat ion rate (GFR) non- AmericanOrdered By: Luis Guerrero on 02-04-2022 GFR/1.73 sq M.predicted among non-blacks MDRD (S/P/Bld) [Vol rate/Area] > 60 mL/Min [facility] Ethyl Alcohol Profileon 01-24 Ethanol [Mass/Vol] 300 mg/dL Normal [facility] Comment on above: Performed By: #### C BC, CMP, ETOH #### [facility] [address] Percent Ethanol 0.300 % Normal [facility] Comment on above: Result Comment: PERF ORMED BY: [place] [address] PATHOLOGIST TEACHER LIP READING ROSA GASPAR M.D. Performed By: #### C BC, CMP, ETOH #### [facility] [address] [place] [address] Globulin Calc (S) [Mass/Vol] Ordered By: Luis Guerrero on 02-04-2022 Globulin (S) [Mass/Vol] 3.1 g/dL [facility] Hematocrit Auto (Bld) [Volum e fraction]Ordered By: Luis Guerrero on 02-04-2022 Hematocrit (Bld) [Volume fraction] 40.1 % 34.0-46.4 [facility] Ketones Auto test strip (U) [Mass/Vol]Ordered By: Luis Guerrero on 02-04-2022 Ketones (U) [Mass/Vol] Negative Negative [facility] Laboratory - Drug toxicology Ordered By: Luis Guerrero on 02-04-2022 Opiates Ql (U) Negative Negative [facility] Laboratory - Hematology and Cell countsOrdered By: Luis Guerrero on 02-04-2022 Nucleated RBC/100 WBC (Bld) [Ratio] 0.0 % 0-0.5 [facility] Lymphocytes Auto (Bld) [#/Vo l]Ordered By: Luis Guerrero on 02-04-2022 Lymphocytes (Bld) [#/Vol] 2.4 10*3/uL 1.00-4.8 [facility] Lymphocytes/100 WBC Auto (Bl d)Ordered By: Luis Guerrero on 02-04-2022 Lymphocytes/100 WBC (Bld) 41.0 % [facility] MCH Auto (RBC) [Entitic mass ]Ordered By: Luis Guerrero on 02-04-2022 MCH (RBC) [Entitic mass] 30.6 pg 24.7-34.3 [facility] MCHC Auto (RBC) [Mass/Vol]Or dered By: Luis Guerrero on 02-04-2022 MCHC (RBC) [Mass/Vol] 34.1 g/dL 32.0-35.0 [facility] MCV Auto (RBC) [Entitic vol] Ordered By: Luis Guerrero on 02-04-2022 MCV (RBC) [Entitic vol] 89.7 fL 80-100 [facility] Monocytes Auto (Bld) [#/Vol] Ordered By: Luis Guerrero on 02-04-2022 Monocytes (Bld) [#/Vol] 0.4 10*3/uL 0.0-0.8 [facility] Monocytes/100 WBC Auto (Bld) Ordered By: Luis Guerrero on 02-04-2022 Monocytes/100 WBC (Bld) 7.3 % [facility] Neutrophils Auto (Bld) [#/Vo l]Ordered By: Luis Guerrero on 02-04-2022 Neutrophils (Bld) [#/Vol] 2.8 10*3/uL 1.8-7.7 [facility] Neutrophils/100 WBC Auto (Bl d)Ordered By: Luis Guerrero on 02-04-2022 Neutrophils/100 WBC (Bld) 48.7 % [facility] Nitrite Test strip Ql (U)Ord ered By: Luis Guerrero on 02-04-2022 Nitrite Ql (U) Negative Negative [facility] No Panel InformationOrdered By: Luis Guerrero on 02-04-2022 SARS Antigen (LFIA) [facility] Estimated GFR () > 60 mL/Min [facility] Comment on above: GFR estimated refere nce range: According to KDOQI guidelines, <60 ml/min/1.73m2 is sufficient to diagnose a patient with chronic kidney disease. Pharmacy Creatinine Clearance (Chem 76.39 [facility] Phencyclidine Screen Ql (U)O rdered By: Luis Guerrero on 02-04-2022 Phencyclidine Ql (U) Negative Negative [facility] Platelet mean volume Auto (B ld) [Entitic vol]Ordered By: Luis Guerrero on 02-04-2022 Platelet mean volume (Bld) [Entitic vol] 8.4 fL 6.3-10.7 [facility] Platelets Auto (Bld) [#/Vol] Ordered By: Luis Guerrero on 02-04-2022 Platelets (Bld) [#/Vol] 177 10*3/uL 150-450 [facility] Protein Auto test strip (U) [Mass/Vol]Ordered By: Luis Guerrero on 02-04-2022 Protein (U) [Mass/Vol] Negative Negative [facility] Protein [Mass/volume] in Ser um or PlasmaOrdered By: Luis Guerrero on 02-04-2022 Protein [Mass/Vol] 7.4 g/dL 6.1-7.9 [facility] RBC Auto (Bld) [#/Vol]Ordere d By: Luis Guerrero on 02-04-2022 RBC (Bld) [#/Vol] 4.47 10*6/uL 3.60-5.00 [facility] Serum or plasma alanine nichols otransferase measurement without P-5'-P (enzymatic activiOrdered By: Luis Guerrero on 02-04-2022 ALT No additional P-5'-P [Catalytic activity/Vol] 70 U/L 10-60 [facility] Serum or plasma albumin/glob ulin mass ratioOrdered By: Luis Guerrero on 02-04-2022 Albumin/Globulin [Mass ratio] 1.4 {ratio} [facility] Serum or plasma alkaline jhonatan sphatase measurement (enzymatic activity/volume)Ordered By: Luis Guerrero on 02-04-2022 ALP [Catalytic activity/Vol] 74 U/L 32-92 [facility] Serum or plasma aspartate am inotransferase measurement (enzymatic activity/volume)Ordered By: Luis Guerrero on 02-04-2022 AST [Catalytic activity/Vol] 40 U/L 10-42 [facility] Serum or plasma calcium nory urement (mass/volume)Ordered By: Luis Guerrero on 02-04-2022 Calcium [Mass/Vol] 9.5 mg/dL 8.2-10.2 [facility] Serum or plasma chloride carlos surement (moles/volume)Ordered By: Luis Guerrero on 02-04-2022 Chloride [Moles/Vol] 102 mmol/L 95-114 [facility] Serum or plasma ethanol nory urement (mass/volume)Ordered By: Luis Guerrero on 02-04-2022 Ethanol [Mass/Vol] 300 mg/dL [facility] Ethanol [Mass/Vol] 0.300 % [facility] Serum or plasma glucose nory urement (mass/volume)Ordered By: Luis Guerrero on 02-04-2022 Glucose [Mass/Vol] 188 mg/dL 70-100 [facility] Comment on above: ADA recommended refe rence range Random Glucose Reference Range is dependent on time and content of last meal. Glucose of more than 200 mg/dL in a nonstressed, ambulatory subject supports the diagnosis of Diabetes Mellitus. Serum or plasma potassium me asurement (moles/volume)Ordered By: Luis Guerrero on 02-04-2022 Potassium [Moles/Vol] 3.7 mmol/L 3.5-5.1 [facility] Serum or plasma sodium measu rement (moles/volume)Ordered By: Luis Guerrero on 02-04-2022 Sodium [Moles/Vol] 143 mmol/L 136-146 [facility] Serum or plasma total biliru bin measurement (mass/volume)Ordered By: Luis Guerrero on 02-04-2022 Bilirubin [Mass/Vol] 0.5 mg/dL 0.3-1.2 [facility] Serum or plasma total carbon dioxide measurement (moles/volume)Ordered By: Luis Cesar on 02-04-2022 CO2 [Moles/Vol] 27.5 mmol/L 22.0-30.0 [facility] Serum or plasma urea nitroge n measurement (mass/volume)Ordered By: Luis Guerrero on 02-04-2022 Urea nitrogen [Mass/Vol] 7 mg/dL 9- [facility] Specific gravity Auto test s trip (U) [Rel density]Ordered By: Luis Cesar on 02-04-2022 Specific gravity (U) [Rel density] 1.004 1.001-1.030 [facility] Urinalysison 02-04-2022 Appearance (U) Clear Normal Clear [facility] Comment on above: Order Comment: Name Collection Type:: Clean-Voided Midstream Performed By: #### U RDS, UA #### [facility] [address] [place] [address] [place] Bilirubin,Urine Negative Normal Negative [facility] Comment on above: Order Comment: Name Collection Type:: Clean-Voided Midstream Performed By: #### U RDS, UA #### [facility] [address] [place] [address] [place] Color (U) Yellow Normal Yellow [facility] Comment on above: Order Comment: Name Collection Type:: Clean-Voided Midstream Performed By: #### U RDS, UA #### [facility] [address] [place] [id number] [place] Glucose Ql (U) Normal Normal Normal [facility] Comment on above: Order Comment: Name Collection Type:: Clean-Voided Midstream Performed By: #### U RDS, UA #### [facility] [address] [place] [address] [place] Ketones Ql (U) Negative Normal Negative [facility] Comment on above: Order Comment: Name Collection Type:: Clean-Voided Midstream Performed By: #### U RDS, UA #### [facility] [address] [place] [id number] [place] Leukocyte esterase Test strip Ql (U) Negative Normal Negative [facility] Comment on above: Order Comment: Name Collection Type:: Clean-Voided Midstream Performed By: #### U RDS, UA #### [facility] [address] [place] [address] [place] Nitrite,Urine Negative Normal Negative [facility] Comment on above: Order Comment: Name Collection Type:: Clean-Voided Midstream Performed By: #### U RDS, UA #### [facility] [address] [place] [address] [place] Occult Blood,Urine Negative Normal Negative [facility] Comment on above: Order Comment: Name Collection Type:: Clean-Voided Midstream Result Comment: PERF ORMED BY: [place] [address] PATHOLOGIST TEACHER [employer] ROSA GASPAR M.D. Performed By: #### U RDS, UA #### [place] [address] [place] pH (U) 5.5 [pH] Normal 5.0-9.0 [facility] Comment on above: Order Comment: Name Collection Type:: Clean-Voided Midstream Performed By: #### U RDS, UA #### [facility] [address] [place] [address] [place] Protein,Urine Negative Normal Negative [facility] Comment on above: Order Comment: Name Collection Type:: Clean-Voided Midstream Performed By: #### U RDS, UA #### [facility] [address] [place] [address] [place] Specificy Salcha,Urine 1.004 Normal 1.001-1.030 [facility] Comment on above: Order Comment: Name Collection Type:: Clean-Voided Midstream Performed By: #### U RDS, UA #### [facility] [address] [place] [address] [place] Urobilinogen,Urine Normal Normal Normal [facility] Comment on above: Order Comment: Name Collection Type:: Clean-Voided Midstream Performed By: #### U RDS, UA #### [facility] [address] [place] [address] [place] Urine clarity by refractomet ry automatedOrdered By: Luis Guerrero on 02-04-2022 Clarity Refractometry automated (U) Clear Clear [facility] Urine cocaine detectionOrder ed By: Luis Guerrero on 02-04-2022 Cocaine Ql (U) Negative Negative [facility] Urine glucose measurement by automated test strip (mass/volume)Ordered By: Luis Guerrero on 02-04-2022 Glucose Auto test strip (U) [Mass/Vol] Normal mg/dL Normal [facility] Urine hemoglobin detection b y automated test stripOrdered By: Luis Guerrero on 02-04-2022 Hemoglobin Auto test strip Ql (U) Negative Negative [facility] Urine leukocyte esterase det ection by automated test stripOrdered By: Luis Guerrero on 02-04-2022 Leukocyte esterase Auto test strip Ql (U) Negative Negative [facility] Urobilinogen Auto test strip (U) [Mass/Vol]Ordered By: Luis Guerrero on 02-04-2022 Urobilinogen (U) [Mass/Vol] Normal mg/dL Normal [facility] pH Auto test strip (U)Ordere d By: Luis Guerrero on 02-04-2022 pH (U) 5.5 [pH] 5.0-9.0 [facility]26 SARS-CoV-2 (COVID-19) RNA EDMUND+probe Ql (Unsp spec) Detected Critically abnormal NOT DETECTED [facility] Comment on above: Result Comment: This test is not yet approved or cleared by the [place] FDA. When there are no FDA-approved or cleared tests available, and other criteria are met, FDA can make tests available under an emergency access mechanism called an Emergency Use Authorization (EUA). The EUA for this test is supported by the [employer] of Health and Human Service's (HHS's) declaration that circumstances exist to justify the emergency use of in vitro diagnostics for the detection and/or diagnosis of the virus that causes COVID-19. This EUA will remain in effect (meaning this test can be used) for the duration of the COVID-19 declaration justifying emergency of IVDs, unless it is terminated or revoked by FDA (after which the test may no longer be used). Performed By: #### C VDTB #### [facility] [address] [place] [address] Dr. Tyler Larkin Covid-19 PCR (CVDTB)on 06-28 SARS-CoV-2 (COVID-19) RNA EDMUND+probe Ql (Unsp spec) Not detected Normal NOT DETECTED [facility] Comment on above: Result Comment: This test is not yet approved or cleared by the [place] FDA. When there are no FDA-approved or cleared tests available, and other criteria are met, FDA can make tests available under an emergency access mechanism called an Emergency Use Authorization (EUA). The EUA for this test is supported by the [place] of Health and Human Service's (HHS's) declaration that circumstances exist to justify the emergency use of in vitro diagnostics for the detection and/or diagnosis of the virus that causes COVID-19. This EUA will remain in effect (meaning this test can be used) for the duration of the COVID-19 declaration justifying emergency of IVDs, unless it is terminated or revoked by FDA (after which the test may no longer be used). When diagnostic testing is negative, the possibility of a false negative should be considered in the context of a patient's recent exposures and the presence of clinical signs and symptoms consistent with SARS-CoV-2. Performed By: #### C VDTBH #### [facility] [address] [place] [address] Dr. Tyler Larkin C-PEPTIDE, SERUMon C-Peptide, Serum 4.7 ng/mL Critically high 1.1-4.4 [facility] Comment on above: Result Comment: C-Pe ptide reference interval is for fasting patients. Performed By: #### C PEPT #### [facility] [address] [place] [address] Nevaeh Abena LIPID PROFILEon 12-27-2020 CHOL-HDL RATIO NORM SEE BELOW Normal [facility] Comment on above: Result Comment: 3.3 - 4.4 LOW RISK 4.4 - 7.1 AVERAGE RISK 7.1 - 11.0 MODERATE RISK >11.0 HIGH RISK Performed By: #### L IPID, RENAL #### [facility] [address] [place] [address] [employer] Cholesterol [Mass/Vol] 153 mg/dL Normal <=200 [facility] Comment on above: Performed By: #### L IPID, RENAL #### [facility] [address] [place] [id number] Nevaeh Abena Cholesterol in HDL [Mass/Vol] 49 mg/dL Normal [facility] [place] Comment on above: Performed By: #### L IPID, RENAL #### [facility] [address] [place], [place] [address] Nevaeh Abena Cholesterol in LDL [Mass/Vol] 65.8 mg/dL Normal [facility] [place] Comment on above: Performed By: #### L IPID, RENAL #### [facility] [address] [place] [id number] Nevaeh Abena Cholesterol.total/Chol esterol in HDL [Mass ratio] 3.1 {ratio} Normal [facility] [place] Comment on above: Performed By: #### L IPID, RENAL #### [facility] [address] [place] [phone] Nevaeh Abena HDL NORMAL > or = 60 mg/dl - LO W CARDIOVASCULAR RISK <40 mg/dl - HIGH CARDIOVASCULAR RISK Normal [facility] [place] Comment on above: Performed By: #### L IPID, RENAL #### [facility] [address] [place], [place] [phone] Nevaeh Abena LDL CALC NORMAL SEE BELOW Normal [facility] [place] Comment on above: Result Comment: <100 mg/dl OPTIMAL 100 - 129 mg/dl NEAR OR ABOVE OPTIMAL 130 - 159 mg/dl BORDERLINE HIGH 160 - 189 mg/dl HIGH >190 mg/dl VERY HIGH Performed By: #### L IPID, RENAL #### [facility] [address] [place] [phone] Nevaeh Abena Triglyceride [Mass/Vol] 191 mg/dL Critically high <=150 [facility] Comment on above: Performed By: #### L IPID, RENAL #### [facility] [address] [place], [place] [phone] Nevaeh Abena VLDL CALC 38.2 mg/dL Normal [facility] [place] Comment on above: Performed By: #### L IPID, RENAL #### [facility] [address] [place], [place] [address] Nevaeh Abena MICROALB CREAT RATIO RANDOMo n 12-27-2020 mALB 2.4 mg/L Normal <=30.0 [facility] [place] Comment on above: Performed By: #### M CRR #### [facility] [address] [place], [place] [address] Nevaeh Abena MALB CR RATIO 14.5 mg/g Normal 0.0-29.9 [facility] Comment on above: Performed By: #### M CRR #### [facility] [address] [place] [address] Nevaeh Abena MALB CR RATIO RANGE SEE BELOW Normal [facility] Comment on above: Result Comment: NO M ICROALBUMINURIA 0-29 MG/G CLINICAL MICROALBUMINURIA 30-300 MG/G MACROALBUMINURIA >300 MG/G Performed By: #### M CRR #### [facility] [address] [place], [place] [phone] Nevaeh Abena URINE CREAT 165.69 mg/dL Normal 20.00-300.00 [facility] [place] Comment on above: Performed By: #### M CRR #### [facility] [address] [place] [address] Nevaeh Abena RENAL FUNCTION PANELon 12-27 Albumin [Mass/Vol] 3.5 g/dL Normal 3.5-5.0 [facility] Comment on above: Performed By: #### L IPID, RENAL #### [facility] [address] [place], [place] [phone] Nevaeh Abena Calcium [Mass/Vol] 8.9 mg/dL Normal 8.4-10.2 [facility] Comment on above: Performed By: #### L IPID, RENAL #### [facility] [address] [place], [place] [phone] Nevaeh Abena Chloride [Moles/Vol] 105 mmol/L Normal 98-107 [facility] Comment on above: Performed By: #### L IPID, RENAL #### [facility] [address] [place] [address] Nevaeh Abena CO2 [Moles/Vol] 30.5 mmol/L Critically high 22.0-30.0 [facility] [place] Comment on above: Performed By: #### L IPID, RENAL #### [facility] [address] [place], [place] [address] Nevaeh Abena Creatinine [Mass/Vol] 0.84 mg/dL Normal 0.52-1.04 [facility] [place] Comment on above: Performed By: #### L IPID, RENAL #### [facility] [address] [place], [place] [address] Nevaeh Abena EGFR-AF GHANAIAN >60 Normal >=60 [facility] Comment on above: Performed By: #### L IPID, RENAL #### [facility] [address] [place] [address] Nevaeh Abena EGFR-NON AF GHANAIAN >60 Normal >=60 [facility] [place] Comment on above: Performed By: #### L IPID, RENAL #### [facility] [address] [place] [address] Nevaeh Abena Glucose [Mass/Vol] 172 mg/dL Critically high 74-106 [facility] Comment on above: Performed By: #### L IPID, RENAL #### [facility] [address] [place] [address] Nevaeh Abnea Phosphate [Mass/Vol] 3.9 mg/dL Normal 2.5-4.5 [facility] [place] Comment on above: Performed By: #### L IPID, RENAL #### [facility] [address] [place] [address] Nevaeh Abena Potassium [Moles/Vol] 4.1 mmol/L Normal 3.4-5.0 [facility] [place] Comment on above: Performed By: #### L IPID, RENAL #### [facility] [address] [place], [place] [address] Nevaeh Abena Sodium [Moles/Vol] 141 mmol/L Normal 137-145 [facility] Comment on above: Performed By: #### L IPID, RENAL #### [facility] [address] [place], [place] [address] Nevaeh Abena Urea nitrogen [Mass/Vol] 15.0 mg/dL Normal 7.0-17.0 [facility] [place] Comment on above: Performed By: #### L IPID, RENAL #### [facility] [address] [place] [address] Nevaeh Kraft VITAMIN D 25 OHon 12-27-2020 VIT D 25-OH 33.8 ng/mL Normal [facility] [place] Comment on above: Performed By: #### V ITAD #### [facility] [address] [place] [address] Nevaeh Kraft VIT D RANGES SEE BELOW Normal [facility] [place] Comment on above: Result Comment: <20 ng/mL Vit D deficient 20 - <30 ng/mL Vit D insufficient 30 - 100 ng/mL Vit D sufficient >100 ng/mL Potential Toxicity Performed By: #### V ITAD #### [facility] [address] [place] [address] Nevaeh Kraft US LEIGHTON DOP LEG LTon 11-02-19 US LEIGHTON DOP LEG LT EXAMINATION: US LEIGHTON DOP LEG LT HISTORY: Pain of left lower leg COMPARISON: No relevant comparison available. TECHNIQUE: Grayscale, color and Doppler ultrasound FINDINGS: Region: Left leg Thrombus: None Flow: Normal Augmentation: Normal Compressibility: Normal IMPRESSION: No deep vein thrombus in the left leg *Exam performed in accordance with AIUM practice guidelines- Peripheral venous ultrasound, November 19, 2009. Electronically authenticated by: MELIA DEVINE Date: 2020-11-01 13:43 Normal [facility] [place] Vital Signs Date Time Vital Sign Value Performing Clinician Facility 02-04-2022 22:06-0400 Diastolic blood pressure 68 mm[Hg] DO [facility] 02-04-2022 22:06-0400 Heart rate 81 /min DO [facility] 02-04-2022 22:06-0400 Respiratory rate 18 /min DO [facility] 02-04-2022 22:06-0400 SaO2% (BldA) [Mass fraction] 93 % DO [facility] 02-04-2022 22:06-0400 Systolic blood pressure 131 mm[Hg] DO [facility] 02-04-2022 19:45-0400 Body height 147.32 cm DO [facility] 02-04-2022 19:45-0400 Body mass index (BMI) [Ratio] 32 kg/m2 DO [facility] 02-04-2022 19:45-0400 Body temperature 98.3 [degF] DO [facility] 02-04-2022 19:45-0400 Body weight 69.55 kg DO [facility] 01-15-2022 12:30-0400 Body height 147.32 cm Mustapha Lynn Other [facility] [employer] Other 01-15-2022 12:30-0400 Body mass index (BMI) [Ratio] 30.93 kg/m2 Mustapha Lynn Other [employer] [facility] [employer] Other 01-15-2022 12:30-0400 Body weight 67.13 kg Mustapha Lynn Other [facility] [employer] Other 01-05-2022 09:00-0400 Body temperature 98.6 [degF] O[facility] [employer] [facility] 01-05-2022 09:00-0400 Diastolic blood pressure 63 mm[Hg] [employer] [facility] 01-05-2022 09:00-0400 Heart rate 68 /min Olu [employer] [facility] 01-05-2022 09:00-0400 Respiratory rate 16 /min Olu [employer] [facility] 01-05-2022 09:00-0400 SaO2% (BldA) [Mass fraction] 96 % [employer] [facility] 01-05-2022 09:00-0400 Systolic blood pressure 143 mm[Hg] Olu Nortis [facility] Encounters Encounter Date Encounter Type Care Provider Facility Start: 11-05-2023 End: 11-06-2023 ambulatory Merari Piedra [facility] Start: 11-05-2023 End: 11-05-2023 Patient encounter procedure Merari Piedra [facility] Start: 11-01-2023 End: 11-02-2023 ambulatory Merari Piedra [facility] Start: 11-01-2023 End: 11-01-2023 Patient encounter procedure Merari Piedra [facility] Start: 10-30-2023 End: 10-31-2023 ambulatory Merari Piedra [facility] Start: 10-30-2023 End: 10-30-2023 Patient encounter procedure Merari Piedra [facility] Start: 03-11-2023 End: 03-11-2023 Emergency department patient visit Olu Young Facility[facility] Start: 02-07-2023 End: 02-08-2023 ambulatory [facility] Facility:[facility] Start: 05-30-2022 End: 05-30-2022 Patient encounter procedure Daniele Marquez Addy [facility] Start: 02-04-2022 End: 02-04-2022 Emergency department patient visit DO Daniele Addy [facility] Start: 01-15-2022 End: 01-15-2022 ambulatory Mustapha Lynn Other [employer] Other Start: 01-15-2022 [facility] visit new patient [facility] Start: 01-05-2022 End: 01-05-2022 Emergency department patient visit Olu Young [facility] Start: 09-06-2021 End: 09-06-2021 ambulatory LESLI WOLF Facility:[facility] Start: 07-25-2021 End: 07-25-2021 ambulatory LESLI WOLF Facility:[facility] Start: 12-27-2020 End: 12-28-2020 ambulatory KASEY MORA Facility:[facility] Start: 11-01-2020 End: 11-02-2020 ambulatory LESLI WOLF Facility:[facility] Procedures Date Procedure Procedure Detail Performing Clinician Start: 02-04-2022 SARS Antigen (LFIA) DO Daniele Link Start: 08-26-2008 Excision of bunion Olu Hector Start: 08-26-1999 Structure of carpal canal (body structure) Olu Young Start: 08-26-1988 section Oul koroma Start: 08-26-1988 Cholecystectomy Olu lei ear drum repairr Olu cheung Endoscopy Olu Hector History of adenectomy Olu koroma Plan of Treatment Date Care Activity Detail Author Patient referral [facility] Work Phone: Payers Date Payer Category Payer Unknown [id number] 2023 Unknown [id number] 2022 [facility] [id number] 1962 Unknown [id number] 2.16.84 [id number] 1962 Unknown [id number] 2.16.84 [id number] 1962 Unknown [id number] 2.16.84 [id number] 1962 Unknown [id number] 2.16.84 [id number] 1962 Unknown [id number] 2.16.8 [id number] 1962 Unknown [id number] 2.16.8 [id number] 1962 Unknown [id number] 2.16.8 [id number] 1962 Unknown [id number] 2.16.8 [id number] 1962 Unknown [id number] 2.16.8 [id number] 1959 Self-pay [id number] 1959 Unknown [id number] Self-pay Self Pay [id number] Social History Date Type Detail Facility Start: 05-27-2019 Tobacco smoking status Ex-smoker (fi nding) [facility] Sex Assigned At Female [facility] Start: 02-04-2022 Tobacco smoking stat us NDIS Never smoked tobacco (finding) [facility] Start: 1960 Sex Assigned At Female [facility] Tobacco [facility] Comment on above: denies Tobacco smoking status No Smokin g Status Entered [facility] Evaluation note 01-15-2022 Note Date & Type Note Facility 01-15-2022 Evaluation note Encounter Date Diagnosis Assessment Notes December, Other closed fracture of distal end of right radius, initial encounter (ICD-10 - S52.591A) Ida presents with right radial styloid fracture. At this juncture we have discussed the findings and diagnosis as well as personally reviewed appropriate imaging and performed interpretation of related testing and examination with the patient in office today. Prior medical notes from urgent care and history have been reviewed. At this time I would recommend splinting and immobilization with limited weightbearing to the right wrist. We will plan for follow-up in another 3 weeks for repeat x-rays outside of splint. Work note given for light duty today. Patient is being seen and treated for left wrist pain and is currently on light duty with her left wrist as well. This is being managed elsewhere The patient has been involved in our cooperative treatment plan and agrees to move forward with treatment at this time. The patient has suffered distal radius fracture. This fracture is stable and we will treat this non-operatively . We will treat this in a removable splint. The patient appears to be tolerating this well. We discussed that this injury can take at least six weeks to have early healing will need gentle motion and strength exercise for months after healing. We discussed the need to limit any weight bearing to arm or strenuous activity such as lifting. We discussed the need to keep the splint clean and dry. 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 Patient is in need of a cock up wrist brace due to their diagnosis of distal radius fracture. This is needed for aid in activities of daily living by increasing safety and stability. This will be needed for approximately 6 weeks or longer. December, Other See orders for this visit as documented in the electronic medical record. Patient can return to work on light duty. No pushing, pulling or lifting anything greater than 1 lb with the right hand. while in the brace [employer] Other Evaluation + Plan note 01-05-2022 Note Date & Type Note Facility 01-05-2022 Evaluation + Plan note [facility] natalia from: Title:ED Note Author:Kat COWAN, Filipe Alarcon te:01/05/22 Wrist fracture (S62.109A: Fr acture of unspecified carpal bone, unspecified wrist, initial encounter for closed fracture) Ordered: acetaminophen-oxycodone, 1 tab(s), Oral, q6hr as needed for pain for 3 day(s), 15 tab(s), Refill(s) 0, [facility]/pharmacy #[id number], 147.3, cm, 01/05/22 9:03:00 EDT, Height/Length Dosing, 68, kg, 01/05/22 9:03:00 EDT, Weight Dosing Orders: acetaminophen-oxycodone, 1 tab(s), Tab, Oral, Once, Stop date 01/05/22 9:06:00 EDT, STAT, Start date 01/05/22 9:06:00 EDT Apply Sling XR Forearm 2 Views Right XR Wrist 3+ Views Right Future Appointments Appointment Date:01/09/2022 02:30:00 PM Scheduled Provider:Sugey SANCHEZ CNP [place] [place] Type:IH Injury Follow up [facility] () [facility] Hospital Discharge instructions 01-05-2022 Note Date & Type Note Facility 01-05-2022 Hospital Discharg e instructions Patient Education 01/05/2022 10:40:19 Radial Fracture Radial Fracture A radial fracture is a break in the radius bone. The radius is a bone in the forearm, on the same side as the thumb. The forearm is the part of the arm that is between the elbow and the wrist. A radial fracture near the wrist (distal radialfracture) is the most common type of broken arm. A fracture can also occur near the elbow (radial head fracture). What are the causes? The most common cause of a radial fracture is falling with the arm outstretched. Other causes include: An accident, such as a car or bike accident. A hard, direct hit to the forearm. What increases the risk? You may be at greater risk for a radial fracture if you: Are female. Are an older adult. Play contact sports. Have a condition that causes your bones to become thin and brittle (osteoporosis). What are the signs or symptoms? A radial fracture causes pain immediately after the injury. Other signs and symptoms may include: An abnormal bend or bump in the arm (deformity). Swelling. Bruising. Numbness or tingling in your arm and hand. Limited movement of your arm and hand. How is this diagnosed? This condition may be diagnosed based on: Your symptoms and medical history. A physical exam. An X-ray. How is this treated? Treatment depends on how severe your fracture is, where it is, and how the pieces of the broken bone line up with each other (alignment). The first step may be for you to wear a temporary splint for a few days, until your swelling goes down. After the swelling goes down, you may get a cast, get a different type of splint, or have surgery. If your broken bone is in good alignment, you will need to wear a splint or cast for up to 6 weeks. If your broken bone is not aligned (is displaced), your health care provider will need to align the bone pieces. After alignment, you will need to wear a splint or cast for up to 6 weeks. To align your broken bone, your health care provider may: ?Move the bones back into position without surgery (closed reduction). ?Perform surgery to align the fracture and fix the bone pieces into place with metal screws, plates, or wires (open reduction and internal fixation, ORIF). ?Perform surgery to align the fracture and fix the bone pieces into place with pins that are attached to a stabilizing bar outside your skin (external fixation). Treatment may also include: Having your cast changed after 2 3 weeks. Physical therapy. Follow-up visits and X-rays to make sure you are healing. Follow these instructions at home: If you have a splint: Wear it as told by your health care provider. Remove it only as told by your health care provider. Loosen the splint if your fingers tingle, become numb, or turn cold and blue. Keep the splint clean and dry. If you have a cast: Do not stick anything inside the cast to scratch your skin. Doing that increases your risk for infection. Check the skin around the cast every day. Tell your health care provider about any concerns. You may put lotion on dry skin around the edges of the cast. Do not put lotion on the skin underneath the cast. Keep the cast clean and dry. Bathing Do not take baths, swim, or use a hot tub until your health care provider approves. Ask your health care provider if you may take showers. You may only be allowed to take sponge baths. If your splint or cast is not waterproof: ?Do not let it get wet. ?Cover it with a watertight covering when you take a bath or a shower. Activity Do not lift anything with your injured arm. Do not use the injured arm to support your body weight until your health care provider says that you can. Ask your health care provider what activities are safe for you during recovery, and ask what activities you need to avoid. Managing pain, stiffness, and swelling If directed, put ice on painful areas: ?If you have a removable splint, remove it as told by your health care provider. ?Put ice in a plastic bag. ?Place a towel between your skin and the bag, or between your cast and the bag. ?Leave the ice on for 20 minutes, 2 3 times a day. Move your fingers often to avoid stiffness and to lessen swelling. Raise (elevate) your arm above the level of your heart while you are sitting or lying down. General instructions Do not put pressure on any part of the cast or splint until it is fully hardened, if applicable. This may take several hours. Take apoe-yrh-lorwlow and prescription medicines only as told by your health care provider. Do not drive until your health care provider approves. You should not drive or use heavy machinery while taking prescription pain medicine. Do not use any products that contain nicotine or tobacco, such as cigarettes and e-cigarettes. These can delay bone healing. If you need help quitting, ask your health care provider. Keep all follow-up visits as told by your health care provider. This is important. Contact a health care provider if you have: Pain that does not get better with medicine. Swelling that gets worse. A bad smell coming from your cast. Get help right away if: You cannot move your fingers. You have severe pain. Your fingers or your hand: ?Become numb, cold, or pale. ?Turn a bluish color. Summary A radial fracture is a break in the radius bone. The radius is in the forearm, on the same side as the thumb. Treatment depends on how severe your fracture is, where it is, and how the pieces of the broken bone line up with each other. A splint or cast may be needed to help the fracture heal. A more severe break may require surgery. This information is not intended to replace advice given to you by your health care provider. Make sure you discuss any questions you have with your health care provider. Document Released: 01/23/2007 Document Revised: 08/06/2018 Document Reviewed: 08/06/2018 [employer] Patient Education 2020 [employer] 01/05/2022 10:40:19 Cast or Splint Care, Adult Cast or Splint Care, Adult Casts and splints are supports that are worn to protect broken bones and other injuries. A cast or splint may hold a bone still and in the correct position while it heals. Casts and splints may also help ease pain, swelling, and muscle spasms. A cast is a hardened support that is usually made of fiberglass or plaster. It is custom-fit to the body and it offers more protection than a splint. It cannot be taken off and put back on. A splint is a type of soft support that is usually made from cloth and elastic. It can be adjusted or taken off as needed. You may need a cast or a splint if you: Have a broken bone. Have a soft-tissue injury. Need to keep an injured body part from moving (keep it immobile) after surgery. How is this treated? If you have a cast: Do not stick anything inside the cast to scratch your skin. Sticking something in the cast increases your risk of infection. Check the skin around the cast every day. Tell your health care provider about any concerns. You may put lotion on dry skin around the edges of the cast. Do not put lotion on the skin underneath the cast. Keep the cast clean. If the cast is not waterproof: ?Do not let it get wet. ?Cover it with a watertight covering when you take a bath or a shower. If you have a splint: Wear it as told by your health care provider. Remove it only as told by your health care provider. Loosen the splint if your fingers or toes tingle, become numb, or turn cold and blue. Keep the splint clean. If the splint is not waterproof: ?Do not let it get wet. ?Cover it with a watertight covering when you take a bath or a shower. Bathing Do not take baths or swim until your health care provider approves. Ask your health care provider if you can take showers. You may only be allowed to take sponge baths for bathing. If your cast or splint is not waterproof, cover it with a watertight covering when you take a bath or shower. Managing pain, stiffness, and swelling Move your fingers or toes often to avoid stiffness and to lessen swelling. Raise (elevate) the injured area above the level of your heart while sitting or lying down. Safety Do not use the injured limb to support your body weight until your health care provider says that it is okay. Use crutches or other assistive devices as told by your health care provider. General instructions Do not put pressure on any part of the cast or splint until it is fully hardened. This may take several hours. Return to your normal activities as told by your health care provider. Ask your health care provider what activities are safe for you. Take qqgj-lql-megfhwb and prescription medicines only as told by your health care provider. Keep all follow-up visits as told by your health care provider. This is important. Contact a health care provider if: Your cast or splint gets damaged. The skin around the cast gets red or raw. The skin under the cast is extremely itchy or painful. Your cast or splint feels very uncomfortable. Your cast or splint is too tight or too loose. Your cast becomes wet or it develops a soft spot or area. You get an object stuck under your cast. Get help right away if: Your pain is getting worse. The injured area tingles, becomes numb, or turns cold and blue. The part of your body above or below the cast is swollen and discolored. You cannot feel or move your fingers or toes. There is fluid leaking through the cast. You have severe pain or pressure under the cast. You have trouble breathing. You have shortness of breath. You have chest pain. This information is not intended to replace advice given to you by your health care provider. Make sure you discuss any questions you have with your health care provider. Document Released: 08/09/2001 Document Revised: 06/09/2018 Document Reviewed: 02/02/2017 [employer] Patient Education [employer] Follow Up Care 01/05/2022 08:56:34 With:Patrick Yanes Address: [address] [place], [place] [id number] Business (1) When:01/08/2022 10:04:13 [facility] Evaluation + Plan note Radiology Note Date & Type Note Facility Evaluation + Plan note Future Appointments Appointment Date:11/01/2023 10:00:00 AM Scheduled Provider: Location:.[facility] Appointment Type:US Abdominal/Pelvis (FT) Future Scheduled TestsUS Abdomen Complete 11/01/23 [facility] Evaluation + Plan note Radiology Note Date & Type Note Facility Evaluation + Plan note Future Appointments Appointment Date:11/05/2023 12:00:00 PM Scheduled Provider: Location:.[facility] Appointment Type:US Abdominal/Pelvis (FT) Future Scheduled TestsUS Pelvis Non-OB Complete 11/05/23 [facility] Evaluation note Note Date & Type Note Facility Evaluation note No assessment information [facility] Work Phone: History general Narrative - Reported Note Date & Type Note Facility History general Narrative - Reported Type Medical History diabetes mallitus Medical History Hypertension Surgical History cholecystectomy Surgical History Foot Surgery Surgical History carpal tunnel release Surgical History C section Hospitalization History see surgical history [employer] Other Hospital course Narrative Note Date & Type Note Facility Hospital course Narrative No data available for this section [facility] Hospital Discharge instructions Note Date & Type Note Facility Hospital Discharge instructions No data available for this section [facility] Progress note Note Date & Type Note Facility Progress note No data available for this section [facility] Summary Purpose Family History No Family History Records FoundNo Family History Records Found No data available for this section No data available for this section No data available for this section No Family History Records Found Advance Directives No Advanced Directives Records Found Advance Directive Response Recorded Date/ Time Advance Directives No February 04 8:10pm Chief Complaint and Reason for Visit Chief Complaint suicidal Additional Source Comments INFORMATION SOURCE (unrecogn ized section and content) DATE CREATED AUTHOR 09/09/2021 [facility] DATE CREATED AUTHOR AUTHOR'S ORGANIZ ATION 03/29/2022 [facility] DATE CREATED AUTHOR AUTHOR'S ORGANIZ ATION 11/06/2023 [facility] Care Teams (unrecognized sec tion and content) Team Status: Inactive Member Role Status Dates Daniele Avina , Primary Care Provider Active Luis Guerrero DO Emergency Provider Active Team Status: Active Member Role Status Dates Daniele Avina , DO Primary Care Provider Active Goals (unrecognized section and content) Goals may be documented in a n alternate section REASON FOR VISIT (unrecogniz ed section and content) CONSULT DR AVINA RT WRIST FX [facility] FOR RECORDS PERTAINING TO PATIENTS WHO ARE OR HAVE BEEN ENROLLED IN A CHEMICAL DEPENDENCY/SUBSTANCEABUSE PROGRAM, SOME INFORMATION MAY BE OMITTED. This clinical summary was aggregated from multiple sources. Caution should be exercised in using it in the provision of clinical care. This summary normalizes information from multiple sources, and as a consequence, information in this document may materially change the coding, format and clinical context of patient data. In addition, data may be omitted in some cases. CLINICAL DECISIONS SHOULD BE BASED ON THE PRIMARY CLINICAL RECORDS. [email or web address] [facility]. provides no warranty or guarantee of the accuracy or completeness of information in this document.
--- NOTE | 2024-05-03 11:10 | XR_ITS ---
The [address] [address] Patient Name: ZACKERY ZELAYA MRN: [facility]:[id number] date: 1960 Sex: F Assigned Patient Location: ER Current Patient Location: Accession/Order Number: [id number] Exam Date: 05/03/2024 11:30 Report Date: 05/03/2024 12:59 At the request of: RIYA AMEZQUITA Procedure: XR chest 2V EXAM TYPE: XR lumbar spine 2-3V, XR chest 2V EXAM DATE AND TIME: 05/03/2024 11:30 AM EDT INDICATION: Lifting injury pain COMPARISON: No prior radiographs of the chest or lumbar spine available for comparison at the time of this dictation. CT the abdomen and pelvis 10/25/2023 FINDINGS: CHEST: Cardiomediastinal silhouette within normal limits. No lobar consolidation, pleural effusion or pneumothorax. No acute fracture or dislocation. LUMBAR SPINE: 5 lumbar vertebrae. No abnormal curvature. No fracture. No subluxation. Mild multilevel degenerative disc disease without significant central canal or neuroforaminal stenosis, grossly unchanged. Cholecystectomy clips right upper quadrant. Surgical clips within the pelvis bilaterally. Soft tissues within the abdomen and pelvis are otherwise grossly unremarkable. XR/XR chest 2V IMPRESSION: 1. No acute cardiopulmonary process. 2. No acute fracture or traumatic malalignment. Electronically authenticated by: JEAN-PAUL NELSON Date: 05/03/2024 12:59
--- NOTE | 2024-05-03 11:10 | ED.BACK1 ---
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, and she was helping someone to stand up when she started having some back pain, the patient mentioned that she had no nausea no vomiting no chest pain no dizziness but she has took some ibuprofen for the back pain that got worse today morning, she mentioned that the pain is only limited to her lower back as well as the left lower posterior chest she mentioned that it is associated with spasm in her muscles The patient denies any numbness tingling down her legs or her arms Related Data Home Medications ?Medication ?Instructions ?Recorded ?Confirmed insulin NPH isoph U-100 human 100 20 unit subcut QAM 10/25/23 05/03/24 unit/mL (3 mL) subcutaneous pen (Novolin N FlexPen) verapamil 240 mg 24 hr 240 mg PO DAILY 10/25/23 05/03/24 capsule,extended release Previous Rx's ?Medication ?Instructions ?Recorded diclofenac sodium 75 mg 75 mg PO BID PRN pain #14 tabs 05/03/24 tablet,delayed release orphenadrine citrate 100 mg 100 mg PO Q12H PRN muscle spasm 05/03/24 tablet,extended release #10 tabs Allergies Allergy/AdvReac Type Severity Reaction Status Date / Time No Known Drug Allergies Allergy Verified 05/03/24 10:42 Opioid HPI Opioid Management Most Recent Opioid Data: Last Pain Scale 8 03/19/23 14:06 Review of Systems ROS Status of ROS 10 or more systems reviewed and unremarkable except as noted in history and below PFSH PFS Medical History (Updated 05/03/24 @ 12:38 by Mily Hummel MD) Endometriosis ?N80.9 - Endometriosis, unspecified (ICD-10) Endometrial adenocarcinoma ?C54.1 - Malignant neoplasm of endometrium (ICD-10) Surgical History (Updated 10/25/23 @ 09:05 by Cassandra Pearson RN) History of partial hysterectomy ?Z90.711 - Acquired absence of uterus with remaining cervical stump (ICD-10) Hx of cholecystectomy ?Z90.49 - Acquired absence of other specified parts of digestive tract (ICD-10) Social History Smoking status: Never smoker Little interest or pleasure in doing things: not at all Feeling down, depressed, or hopeless: not at all Exam Narrative Exam Narrative: Nurses notes and vital signs reviewed and patient is not hypoxic. General: Well-appearing and in no apparent distress. Skin: Warm, dry, no pallor noted. No rash. Head: Normocephalic, atraumatic. Neck: Supple, non-tender. Eye: Pupils are equal, round and EOMI. No scleral icterus. Ears, Nose, Mouth, and Throat: TM are clear, no nasal mucosal hypertrophy. Oral mucosa is moist, no posterior oropharynx erythema, uvula is mid-line Cardiovascular: Regular Rate and Rhythm without murmur, gallop or rub. Respiratory: No accessory muscle use or respiratory distress. Lungs are clear to auscultation, no wheezing, rales or rhonchi Chest Wall: no tenderness Back: No midline thoracic or lumbar vertebral tenderness. No CVA tenderness the patient have left paraspinal muscle tenderness, also tenderness over the left buttock area Musculoskeletal: normal ROM, no calf or popliteal tenderness, no lower extremity edema/swelling GI: Abdomen is soft, non-distended. Normal bowel sounds. No masses appreciated. No tenderness to palpation. No rebound, guarding, or rigidity noted. Neurological: A&O x4. No cranial nerve dysfunction observed. No truncal ataxia. Moves all extremities. Sensation intact. Psychiatric: Cooperative and interactive. Normal mood and affect. Constitutional Vital Signs, click to edit/add: Last Vital Signs Temp 99 F 05/03/24 10:42 Pulse 61 05/03/24 10:42 Resp 18 05/03/24 10:42 BP 170/80 H 05/03/24 10:42 Pulse Ox 96 05/03/24 10:42 O2 Del Method Room Air 05/03/24 10:42 Course Vital Signs Vital signs: Vital Signs Temperature 99 F 05/03/24 10:42 Pulse Rate 61 05/03/24 10:42 Respiratory Rate 18 05/03/24 10:42 Blood Pressure 170/80 H 05/03/24 10:42 Pulse Oximetry 96 05/03/24 10:42 Oxygen Delivery Method Room Air 05/03/24 10:42 Temperature 99 F 05/03/24 10:42 Pulse Rate 61 05/03/24 10:42 Respiratory Rate 18 05/03/24 10:42 Blood Pressure 170/80 H 05/03/24 10:42 Pulse Oximetry 96 05/03/24 10:42 Oxygen Delivery Method Room Air 05/03/24 10:42 MDM - Back Pain/Injury MDM Narrative Medical decision making narrative: Right now the patient had a CBC and chemistry obtained just to make sure she does not have any underlying pathology because of elevated pressure The patient EKG showing sinus rhythm with a heart rate of [address] elevation or depression Troponin was negative The patient pain was better after initial treatment with Toradol She also had an x-ray of her chest and x-ray of the lumbar spine both of them showed no acute pathology The patient was discharged with the Voltaren as well as Norflex with stopping her ibuprofen The patient is to follow up with primary care physician in next 2-3 days or to return to the emergency department should any of the signs or symptoms worsen or new symptoms develop. The patient agrees with the following Diagnosis and Treatment plan and the patient will be discharged home. Lab Data Labs: Lab Results 05/03/24 Range/Units 11:13 WBC 4.3 (4.0-11.0) 10^3/uL RBC 4.19 L (4.20-5.40) 10^6/uL Hgb 13.3 (12.0-16.0) g/dL Hct 38.2 (36.0-48.0) % MCV 91.2 (81.0-99.0) fL MCH 31.7 (26.7-34.0) pg MCHC 34.8 (29.9-35.2) g/dL RDW 11.9 (11.0-15.0) % Plt Count 154 (150-450) 10^3/uL MPV 10.7 (9.5-13.5) fL Neut % (Auto) 49.4 (43.0-75.0) % Lymph % (Auto) 39.5 (20.5-60.0) % [place] % (Auto) 7.6 (1.7-12.0) % Eos % (Auto) 2.8 (0.9-7.0) % Baso % (Auto) 0.5 (0.2-2.0) % Neut # (Auto) 2.1 (1.4-6.5) 10^3/uL Lymph # (Auto) 1.7 (1.2-3.8) 10^3/uL [place] # (Auto) 0.3 (0.3-0.8) 10^3/uL Eos # (Auto) 0.1 (0.0-0.7) 10^3/uL Baso # (Auto) 0.0 (0.0-0.1) 10^3/uL Abs Immat Gran (auto) 0.01 (0.00-0.03) 10^3/uL Imm/Tot Granulo (auto) 0.2 (0.0-0.5) % Sodium 139 (136-145) mmol/L Potassium 4.0 (3.5-5.1) mmol/L Chloride 102 (98-107) mmol/L Carbon Dioxide 29.3 (21.0-32.0) mmol/L Anion Gap 11.7 BUN 14.0 (7.0-18.0) mg/dL Creatinine 0.75 (0.55-1.02) mg/dL Est GFR ( Amer) >60 (>=60) Est GFR (Non-Af Amer) >60 (>=60) BUN/Creatinine Ratio 18.7 Glucose 166 H (74-106) mg/dL Calcium 8.9 (8.5-10.1) mg/dL Total Bilirubin 0.4 (0.2-1.0) mg/dL AST 34 (15-37) U/L ALT 51 (14-59) U/L Alkaline Phosphatase 68 (46-116) U/L Troponin I High Sens 4.8 (4.0-51.3) pg/mL Total Protein 7.2 (6.4-8.2) g/dL Albumin 3.8 (3.4-5.0) g/dL Globulin 3.4 g/dL Albumin/Globulin Ratio 1.1 Discharge Plan Discharge Chief Complaint: Back Pain/Injury Clinical Impression: Back sprain Patient Disposition: Home, Self-Care Time of Disposition Decision: 12:37 Condition: Good Prescriptions / Home Meds: New diclofenac sodium 75 mg tablet,delayed release (DR/EC) 75 mg PO BID PRN (Reason: pain) Qty: 14 0RF orphenadrine citrate 100 mg tablet extended release 100 mg PO Q12H PRN (Reason: muscle spasm) Qty: 10 0RF No Action verapamil 240 mg capsule,ext rel. pellets 24 hr 240 mg PO DAILY Novolin N FlexPen 100 unit/mL (3 mL) insulin pen 20 unit subcut QAM Print Language: Vietnamese Instructions: Back Pain (ED) Referrals: Physician,Non-Staff, MD [Primary Care Provider] - 1 week Discharge Date/Time: 05/03/24 12:47
[2024-05-03 11:25] LABS: Basophils Percent Auto 0.5 % (0.2-2.0); Eosinophils Absolute Auto 0.1 10^3/uL (0.0-0.7); Eosinophils Percent Auto 2.8 % (0.9-7.0); Hematocrit 38.2 % (36.0-48.0); Hemoglobin 13.3 g/dL (12.0-16.0); Immature Granulocytes Abs Auto 0.01 10^3/uL (0.00-0.03); Immature Granulocytes Pct Auto 0.2 % (0.0-0.5); Lymphocytes Absolute Auto 1.7 10^3/uL (1.2-3.8); Lymphocytes Percent Auto 39.5 % (20.5-60.0); Mean Corpuscular HGB Conc 34.8 g/dL (29.9-35.2); Mean Corpuscular Hemoglobin 31.7 pg (26.7-34.0); Mean Corpuscular Volume 91.2 fL (81.0-99.0); Mean Platelet Volume 10.7 fL (9.5-13.5); Monocytes Absolute Auto 0.3 10^3/uL (0.3-0.8); Monocytes Percent Auto 7.6 % (1.7-12.0); Neutrophils Absolute Auto 2.1 10^3/uL (1.4-6.5); Neutrophils Percent Auto 49.4 % (43.0-75.0); Platelet Count 154 10^3/uL (150-450); Red Blood Count 4.19 10^6/uL (4.20-5.40); Red Cell Distribution Width 11.9 % (11.0-15.0); White Blood Count 4.3 10^3/uL (4.0-11.0)
--- NOTE | 2024-05-03 11:31 | XR_ITS ---
The [address] [address] Patient Name: ZACKERY ZELAYA MRN: [facility]:[id number] date: 1960 Sex: F Assigned Patient Location: ER Current Patient Location: Accession/Order Number: [id number] Exam Date: 05/03/2024 11:30 Report Date: 05/03/2024 12:59 At the request of: RIYA AMEZQUITA Procedure: XR lumbar spine 2-3V EXAM TYPE: XR lumbar spine 2-3V, XR chest 2V EXAM DATE AND TIME: 05/03/2024 11:30 AM EDT INDICATION: Lifting injury pain COMPARISON: No prior radiographs of the chest or lumbar spine available for comparison at the time of this dictation. CT the abdomen and pelvis 10/25/2023 FINDINGS: CHEST: Cardiomediastinal silhouette within normal limits. No lobar consolidation, pleural effusion or pneumothorax. No acute fracture or dislocation. LUMBAR SPINE: 5 lumbar vertebrae. No abnormal curvature. No fracture. No subluxation. Mild multilevel degenerative disc disease without significant central canal or neuroforaminal stenosis, grossly unchanged. Cholecystectomy clips right upper quadrant. Surgical clips within the pelvis bilaterally. Soft tissues within the abdomen and pelvis are otherwise grossly unremarkable. XR/XR lumbar spine 2-3V IMPRESSION: 1. No acute cardiopulmonary process. 2. No acute fracture or traumatic malalignment. Electronically authenticated by: JEAN-PAUL NELSON Date: 05/03/2024 12:59
[2024-05-03 11:41] LABS: Alanine Aminotransferase 51 U/L (14-59); Albumin Globulin Ratio 1.1; Albumin Level 3.8 g/dL (3.4-5.0); Alkaline Phosphatase 68 U/L (46-116); Anion Gap 11.7; Aspartate Amino Transferase 34 U/L (15-37); BUN Creatinine Ratio 18.7; Bilirubin Total 0.4 mg/dL (0.2-1.0); Calcium 8.9 mg/dL (8.5-10.1); Carbon Dioxide 29.3 mmol/L (21.0-32.0); Chloride 102 mmol/L (98-107); Estimated GFR (African America >60 (>=60); Estimated GFR (Non-African Ame >60 (>=60); Globulin 3.4 g/dL; Glucose 166 mg/dL (74-106); Sodium 139 mmol/L (136-145); Total Protein 7.2 g/dL (6.4-8.2); Troponin I High Sensitivity 4.8 pg/mL (4.0-51.3)
== END 2024-05-03 12:47 | disposition home or self-care (01) ==
PROVIDERS: Emergency Provider Emergency Medicine
DX: S33.5XXA Sprain of ligaments of lumbar spine, initial encounter (principal); X50.9XXA Other and unspecified overexertion or strenuous movements or postures, initial encounter
CPT/HCPCS: 36415; 71046; 72100; 80053; 84484; 85025; 93005; 99285

== ENCOUNTER 2024-05-04 11:44 | Emergency (ER) | payer OTHER, SELFPAY ==
[2024-05-04 11:48] VITALS: BP 188/62; PULSE 67; TEMP 36.6; O2SAT 97; BMI 30.9
--- NOTE | 2024-05-04 12:03 | ED.BACK1 ---
HPI HPI - Back Pain/Injury General Chief Complaint: Back Pain/Injury Stated Complaint: LOWER BACK PAIN Time Seen by Provider: 05/04/24 11:48 Source: patient Mode of arrival: walk-in Limitations: no limitations History of Present Illness HPI Narrative: 63-year-old female presents for pain in the left lower back. She states that she had her back at work and was seen here yesterday and x-rays were taken. She seems to be explaining that she was discharged before the official x-ray reports had come back and she was told that she would be called if there was anything abnormal. I have reviewed those x-ray reports of both the chest and lumbar area and they were both negative. She was prescribed medication and her is picking it up from the pharmacy today. The pain goes into her buttock but not distal to the buttock. Related Data Home Medications ?Medication ?Instructions ?Recorded ?Confirmed insulin NPH isoph U-100 human 100 20 unit subcut QAM 10/25/23 05/03/24 unit/mL (3 mL) subcutaneous pen (Novolin N FlexPen) verapamil 240 mg 24 hr 240 mg PO DAILY 10/25/23 05/03/24 capsule,extended release Previous Rx's ?Medication ?Instructions ?Recorded diclofenac sodium 75 mg 75 mg PO BID PRN pain #14 tabs 05/03/24 tablet,delayed release orphenadrine citrate 100 mg 100 mg PO Q12H PRN muscle spasm 05/03/24 tablet,extended release #10 tabs Allergies Allergy/AdvReac Type Severity Reaction Status Date / Time No Known Drug Allergies Allergy Verified 05/03/24 10:42 Opioid HPI Opioid Management Most Recent Opioid Data: Last Pain Scale 8 03/19/23 14:06 Review of Systems ROS Narrative A ten point review of systems is negative except as noted above. [facility] Medical History (Updated 05/04/24 @ 12:44 by Michael Ham MD) Endometriosis ?N80.9 - Endometriosis, unspecified (ICD-10) Endometrial adenocarcinoma ?C54.1 - Malignant neoplasm of endometrium (ICD-10) Surgical History (Updated 10/25/23 @ 09:05 by Cassandra Pearson RN) History of partial hysterectomy ?Z90.711 - Acquired absence of uterus with remaining cervical stump (ICD-10) Hx of cholecystectomy ?Z90.49 - Acquired absence of other specified parts of digestive tract (ICD-10) Social History Smoking status: Never smoker Little interest or pleasure in doing things: not at all Feeling down, depressed, or hopeless: not at all Exam Narrative Exam Narrative: Nurses note and vital signs reviewed and patient is not hypoxic. General: The patient appears in no acute distress. She is sitting upright on the cart. Skin: Warm, dry, no pallor noted. There is no rash noted. Head: Normocephalic, atraumatic Eye: Normal conjunctiva, no drainage Ears, Nose, Mouth, and Throat: oral mucosa is moist. Nares patent. Cardiovascular: Regular Rate and Rhythm Respiratory: Patient is in no distress, no accessory muscle use, lungs are clear to auscultation, no wheezing, rales or rhonchi Back: non-tender, no CVA tenderness bilaterally to percussion. GI: Soft and nontender Musculoskeletal: Her back is examined and there is no bruise or rash present. No focal area of tenderness to palpation Neurological: Awake and alert Psychiatric: Cooperative Constitutional Vital Signs, click to edit/add: Last Vital Signs Temp 97.8 F 05/04/24 11:48 Pulse 05/04/24 11:48 Resp 05/04/24 11:48 BP 188/62 H 05/04/24 11:48 Pulse Ox 97 05/04/24 11:48 O2 Del Method Room Air 05/04/24 11:48 Course Vital Signs Vital signs: Vital Signs Temperature 97.8 F 05/04/24 11:48 Pulse Rate 05/04/24 11:48 Respiratory Rate 05/04/24 11:48 Blood Pressure 188/62 H 05/04/24 11:48 Pulse Oximetry 97 05/04/24 11:48 Oxygen Delivery Method Room Air 05/04/24 11:48 Temperature 97.8 F 05/04/24 11:48 Pulse Rate 05/04/24 11:48 Respiratory Rate 05/04/24 11:48 Blood Pressure 188/62 H 05/04/24 11:48 Pulse Oximetry 97 05/04/24 11:48 Oxygen Delivery Method Room Air 05/04/24 11:48 MDM - Back Pain/Injury MDM Narrative Medical decision making narrative: X-rays from yesterday were reviewed and lumbar films and chest x-ray were negative. She was given IM Toradol here and was prescribed etodolac yesterday and her is picking that up today. Treatment diagnosis and follow-up were discussed with the patient. Differential Diagnosis Differential diagnosis: Likely other (Lumbar strain, lumbar compression fracture) Discharge Plan Discharge Chief Complaint: Back Pain/Injury Clinical Impression: Strain of lumbar region Patient Disposition: Home, Self-Care Time of Disposition Decision: 12:43 Condition: Good Mode of Transportation: Private Vehicle Prescriptions / Home Meds: No Action verapamil 240 mg capsule,ext rel. pellets 24 hr 240 mg PO DAILY Novolin N FlexPen 100 unit/mL (3 mL) insulin pen 20 unit subcut QAM diclofenac sodium 75 mg tablet,delayed release (DR/EC) 75 mg PO BID PRN (Reason: pain) Qty: 14 0RF orphenadrine citrate 100 mg tablet extended release 100 mg PO Q12H PRN (Reason: muscle spasm) Qty: 10 0RF Print Language: Mongolian Instructions: Low Back Strain (ED) Referrals: Physician,Non-Staff, MD [Primary Care Provider] - 1 week
[2024-05-04] MEDS: KETOROLAC TROMETHAMINE 60 MG/2 ML VIAL IM (12:25)
== END 2024-05-04 12:53 | disposition home or self-care (01) ==
PROVIDERS: Emergency Provider Emergency Medicine
DX: S39.012A Strain of muscle, fascia and tendon of lower back, initial encounter (principal); X58.XXXA Exposure to other specified factors, initial encounter
CPT/HCPCS: 96372; 99284; J1885

== ENCOUNTER 2024-07-10 06:50 | Outpatient (RCR) | payer OTHER, SELFPAY | END 2024-07-17 07:06 | disposition home or self-care (01) | LOC: PT 06:50 | PROVIDERS: Visit Provider Nurse Practitioner Family | DX: S33.8XXD Sprain of other parts of lumbar spine and pelvis, subsequent encounter (principal) | CPT/HCPCS: 97113; 97140; 97163 ==

== ENCOUNTER 2024-12-29 09:09 | Outpatient (OUT) | payer OTHER, SELFPAY ==
--- NOTE | 2024-12-29 09:21 | XR_ITS ---
The [address] [address] Patient Name: ZACKERY ZELAYA MRN: [id number] date: 1960 Sex: F Assigned Patient Location: [facility] Current Patient Location: [facility] Accession/Order Number: [id number] Exam Date: 12/29/2024 10:51 Report Date: 12/29/2024 10:51 At the request of: ADI COLEMAN MD Procedure: XR hip LT 2V w/ pelvis Left hip 2 views of one view pelvis. Reason for exam: Hip bursitis. COMPARISON: None. FINDINGS: Minimal degenerative changes of both hips and SI joints without acute bony process. XR/XR hip LT 2V w/ pelvis IMPRESSION: Minimal degenerative changes of both hips without acute bony process. Impression dictated by: Gilles Viramontes Jr., D.OMich 12/29/2024 10:51 AM Dictation Location: [place] [address] Electronically authenticated by: [id number] Y Date: 12/29/2024 10:51
== END 2024-12-29 09:10 | disposition home or self-care (01) ==
LOC: RAD 09:12
PROVIDERS: PCP Family Medicine; Visit Provider Family Medicine
DX: M25.552 Pain in left hip (principal); M70.70 Other bursitis of hip, unspecified hip
CPT/HCPCS: 73502